=== PATIENT | female | born 1960 | race Caucasian/White ===

== ENCOUNTER 2020-12-25 02:25 | Inpatient (IN) ==
[2020-12-25] MEDS ORDERED: Ondansetron 4 MG/2 ML VIAL IVP PRN (04:53)
[2020-12-25] MEDS ORDERED: Acetaminophen 325 MG TABLET PO PRN (04:53)
[2020-12-25] MEDS ORDERED: Naloxone 0.4 MG/ML INJ IVP PRN (04:53)
[2020-12-25] MEDS ORDERED: *HR* OxyCODONE Immed Rel 5 MG TABLET PO PRN (04:53)
[2020-12-25] MEDS ORDERED: *HR* Promethazine 25 MG/ML VIAL IM PRN (04:53)
[2020-12-25] MEDS ORDERED: Melatonin 3 MG TABLET PO PRN (04:53)
[2020-12-25 05:52] LABS: ABG Base Excess 0 mEq/L (-2 to 3); ABG HCO3 23 mEq/L (21-27); ABG Oxygen Saturation 93 % (95-98); ABG PCO2 32 mmHg (35-45); ABG PH 7.46 pH Units (7.32-7.45); ABG PO2 61 mmHg (85-104); ABG TCO2 24 mEq/L (20-26)
[2020-12-25] MEDS ORDERED: Remdesivir 200 MG in 0.9 % Sodium Chloride 100 ML IVPB ONE (06:00)
[2020-12-25] MEDS: *HR* Enoxaparin 40 MG/0.4 ML SYRINGE SQ SCH (08:48)
[2020-12-25] MEDS ORDERED: Dexamethasone Sodium Phos/PF 10 MG/ML VIAL IVP SCH (09:00)
[2020-12-25] MEDS ORDERED: Isovue-370 500 ML BOTTLE IVP ONE (11:52)
[2020-12-25] MEDS ORDERED: TOCILIZUMAB 810 MG in 0.9 % Sodium Chloride 100 ML IVPB ONE (17:30)
[2020-12-25] MEDS: Ipratropium 1 PUFF INHALER IH SCH (20:33)
[2020-12-26] MEDS: Ipratropium 1 PUFF INHALER IH SCH ×6 (03:48→20:07)
[2020-12-26 04:35] LABS: Hematocrit 43.1 % (35.3-44.9); Hemoglobin 13.7 g/dL (11.5-15.4); Immature Granulocytes % 0.5 % (0-4); Lymphocytes # 0.6 K/mcL (0.6-4.6); Lymphocytes % 13.3 %; Mean Corpuscular HGB Conc 31.8 g/dL (31.6-35.5); Mean Corpuscular Hemoglobin 26.7 pg (28.0-33.3); Mean Corpuscular Volume 83.9 fL (83.0-100.0); Mean Platelet Volume 9.6 fL (9.4-12.4); Monocytes # 0.7 K/mcL (0.0-1.3); Monocytes % 16.9 %; Platelet Count 226 K/mcL (140-400); Red Blood Count 5.14 M/mcL (3.82-4.97); Red Cell Distribution Width 14.5 % (11.5-14.5); Segmented Neutrophils % 69.3 %; White Blood Count 4.4 K/mcL (4.3-11.1)
[2020-12-26 04:42] LABS: INR 1.2
[2020-12-26 04:46] LABS: Neutrophils # 3.1 K/mcL (1.6-8.9)
[2020-12-26 04:55] LABS: Albumin 3.6 g/dL (3.5-5.7); Albumin/Globulin Ratio 1.1 (1.1-2.2); Bilirubin,Direct 0.1 mg/dL (0.0-0.2); Bilirubin,Indirect 0.3 mg/dL (0.0-1.0); Bilirubin,Total 0.4 mg/dL (0.3-1.0); Globulin 3.4 g/dL (2.4-3.5); Magnesium 2.4 mg/dL (1.6-2.6)
[2020-12-26 05:19] LABS: Alanine Aminotransferase 21 Units/L (7-52); Albumin 3.6 g/dL (3.5-5.7); Albumin/Globulin Ratio 1.1 (1.1-2.2); Alkaline Phosphatase 47 Units/L (34-104); Aspartate Amino Transferase 40 Units/L (13-39); BUN/Creatinine Ratio 33 (6-26); Bilirubin,Total 0.4 mg/dL (0.3-1.0); Blood Urea Nitrogen 22 mg/dL (8-23); Carbon Dioxide 26 mEq/L (23-29); Chloride 105 mEq/L (98-107); Globulin 3.4 g/dL (2.4-3.5); Glucose 131 mg/dL (70-105); Osmolality,Calculated 297 (280-300); Potassium 4.5 mEq/L (3.5-5.1); Sodium 141 mEq/L (136-145); eGFR For African Americans > 60 (> 60); eGFR For Non-African Americans > 60 (> 60)
[2020-12-26 05:34] LABS: Platelet Estimate Normal (Normal)
[2020-12-26] MEDS: *HR* Enoxaparin 40 MG/0.4 ML SYRINGE SQ SCH (05:43)
[2020-12-26] MEDS ORDERED: Remdesivir 100 MG in 0.9 % Sodium Chloride 100 ML IVPB SCH (06:00)
[2020-12-26] MEDS: Dexamethasone Sodium Phos/PF 10 MG/ML VIAL IVP SCH (07:57)
[2020-12-26] MEDS ORDERED: Dexamethasone Sodium Phos/PF 10 MG/ML VIAL IVP SCH (09:00)
[2020-12-26] MEDS ORDERED: *HR* LORazepam 2 MG/ML VIAL IVP ONE (09:23)
[2020-12-26 10:06] LABS: ABG Base Excess 1 mEq/L (-2 to 3); ABG HCO3 24 mEq/L (21-27); ABG Oxygen Saturation 93 % (95-98); ABG PCO2 34 mmHg (35-45); ABG PH 7.47 pH Units (7.32-7.45); ABG PO2 62 mmHg (85-104); ABG TCO2 26 mEq/L (20-26); Blood Gas VT 500 cc
[2020-12-26] MEDS: Cholecalciferol (D-3) 1,000 UNIT (25MCG) TABLET PO SCH (10:57)
[2020-12-26] MEDS ORDERED: Dexmedetomidine HCl 400 MCG/100 ML MLS IVC ONE (11:00)
[2020-12-26] MEDS ORDERED: Naloxone 0.4 MG/ML INJ IVP PRN (11:06)
[2020-12-26] MEDS: Dexmedetomidine HCl 400 MCG/100 ML MLS IVC SCH ×2 (11:29→20:28)
[2020-12-26] MEDS: Furosemide 40 MG/4 ML VIAL IVP SCH ×2 (11:34→20:14)
[2020-12-26] MEDS ORDERED: Lidocaine -MPF 1% 5 ML AMPUL INFILT ONE (13:33)
[2020-12-26] MEDS ORDERED: Dexamethasone Sodium Phos/PF 10 MG/ML VIAL IVP ONE (15:01)
[2020-12-26] MEDS: Pantoprazole 40 MG VIAL IVP SCH (20:16)
[2020-12-27] MEDS: Ipratropium 1 PUFF INHALER IH SCH ×7 (00:30→23:15)
[2020-12-27 03:33] LABS: Hematocrit 44.2 % (35.3-44.9); Mean Corpuscular HGB Conc 31.7 g/dL (31.6-35.5); Mean Corpuscular Hemoglobin 26.8 pg (28.0-33.3); Mean Corpuscular Volume 84.7 fL (83.0-100.0); Mean Platelet Volume 9.9 fL (9.4-12.4); Platelet Count 222 K/mcL (140-400); Red Blood Count 5.22 M/mcL (3.82-4.97); Red Cell Distribution Width 14.5 % (11.5-14.5); White Blood Count 6.1 K/mcL (4.3-11.1)
[2020-12-27 03:53] LABS: Alanine Aminotransferase 22 Units/L (7-52); Albumin 3.7 g/dL (3.5-5.7); Alkaline Phosphatase 50 Units/L (34-104); Aspartate Amino Transferase 31 Units/L (13-39); BUN/Creatinine Ratio 57 (6-26); Bilirubin,Total 0.5 mg/dL (0.3-1.0); Blood Urea Nitrogen 47 mg/dL (8-23); C-Reactive Protein 54 mg/L (Less than 10); Calcium 9.1 mg/dL (8.6-10.3); Carbon Dioxide 25 mEq/L (23-29); Chloride 107 mEq/L (98-107); Globulin 3.7 g/dL (2.4-3.5); Glucose 179 mg/dL (70-105); Magnesium 2.5 mg/dL (1.6-2.6); Osmolality,Calculated 313 (280-300); Potassium 4.4 mEq/L (3.5-5.1); Sodium 143 mEq/L (136-145); Total Protein 7.4 g/dL (6.4-8.9); eGFR For African Americans > 60 (> 60); eGFR For Non-African Americans > 60 (> 60)
[2020-12-27] MEDS: Dexmedetomidine HCl 400 MCG/100 ML MLS IVC SCH ×2 (04:55→13:15)
[2020-12-27] MEDS: *HR* Enoxaparin 40 MG/0.4 ML SYRINGE SQ SCH (05:04)
[2020-12-27] MEDS: Dexamethasone Sodium Phos/PF 10 MG/ML VIAL IVP SCH (08:37)
[2020-12-27] MEDS: Pantoprazole 40 MG VIAL IVP SCH (08:37)
[2020-12-27] MEDS: Furosemide 40 MG/4 ML VIAL IVP SCH ×2 (08:37→19:53)
[2020-12-27] MEDS: Cholecalciferol (D-3) 1,000 UNIT (25MCG) TABLET PO SCH (08:38)
[2020-12-28] MEDS: Dexmedetomidine HCl 400 MCG/100 ML MLS IVC SCH (03:06)
[2020-12-28] MEDS: Ipratropium 1 PUFF INHALER IH SCH ×6 (03:35→23:35)
[2020-12-28 04:27] LABS: Hematocrit 46.1 % (35.3-44.9); Hemoglobin 14.1 g/dL (11.5-15.4); Mean Corpuscular HGB Conc 30.6 g/dL (31.6-35.5); Mean Corpuscular Hemoglobin 26.5 pg (28.0-33.3); Mean Corpuscular Volume 86.5 fL (83.0-100.0); Mean Platelet Volume 10.5 fL (9.4-12.4); Platelet Count 206 K/mcL (140-400); Red Blood Count 5.33 M/mcL (3.82-4.97); Red Cell Distribution Width 14.3 % (11.5-14.5); White Blood Count 8.2 K/mcL (4.3-11.1)
[2020-12-28 04:51] LABS: Alanine Aminotransferase 53 Units/L (7-52); Albumin 3.7 g/dL (3.5-5.7); Albumin/Globulin Ratio 1.1 (1.1-2.2); Alkaline Phosphatase 55 Units/L (34-104); Aspartate Amino Transferase 47 Units/L (13-39); BUN/Creatinine Ratio 72 (6-26); Bilirubin,Total 0.5 mg/dL (0.3-1.0); Blood Urea Nitrogen 55 mg/dL (8-23); Calcium 9.3 mg/dL (8.6-10.3); Carbon Dioxide 25 mEq/L (23-29); Chloride 109 mEq/L (98-107); Globulin 3.5 g/dL (2.4-3.5); Glucose 186 mg/dL (70-105); Magnesium 2.7 mg/dL (1.6-2.6); Osmolality,Calculated 324 (280-300); Potassium 3.9 mEq/L (3.5-5.1); Sodium 147 mEq/L (136-145); Total Protein 7.2 g/dL (6.4-8.9); eGFR For African Americans > 60 (> 60); eGFR For Non-African Americans > 60 (> 60)
[2020-12-28] MEDS: *HR* Enoxaparin 40 MG/0.4 ML SYRINGE SQ SCH ×2 (05:11→17:57)
[2020-12-28] MEDS ORDERED: Dexamethasone Sodium Phos/PF 10 MG/ML VIAL IVP SCH (09:00)
[2020-12-28] MEDS: Furosemide 40 MG/4 ML VIAL IVP SCH ×2 (09:37→17:56)
[2020-12-28] MEDS: Pantoprazole 40 MG VIAL IVP SCH (09:38)
[2020-12-28] MEDS: Cholecalciferol (D-3) 1,000 UNIT (25MCG) TABLET PO SCH (09:39)
[2020-12-28] MEDS ORDERED: *HR* LORazepam 2 MG/ML VIAL IVP PRN ×2 (13:24→13:53)
[2020-12-28] MEDS ORDERED: *HR* Promethazine 25 MG/ML VIAL IM PRN (13:53)
[2020-12-28] MEDS ORDERED: Ondansetron 4 MG/2 ML VIAL IVP PRN (13:53)
[2020-12-28] MEDS ORDERED: Naloxone 0.4 MG/ML INJ IVP PRN (13:53)
[2020-12-28] MEDS ORDERED: Melatonin 3 MG TABLET PO PRN (13:53)
[2020-12-28] MEDS ORDERED: *HR* OxyCODONE Immed Rel 5 MG TABLET PO PRN (13:53)
[2020-12-28] MEDS ORDERED: Saline Nasal Spray 44 ML BOTTLE NS PRN (14:31)
[2020-12-28] MEDS ORDERED: *HR* Enoxaparin 40 MG/0.4 ML SYRINGE SQ SCH (18:00)
[2020-12-29 01:38] LABS: Hematocrit 46.3 % (35.3-44.9); Hemoglobin 14.7 g/dL (11.5-15.4); Mean Corpuscular HGB Conc 31.7 g/dL (31.6-35.5); Mean Corpuscular Hemoglobin 26.9 pg (28.0-33.3); Mean Corpuscular Volume 84.6 fL (83.0-100.0); Platelet Count 203 K/mcL (140-400); Red Blood Count 5.47 M/mcL (3.82-4.97); Red Cell Distribution Width 14.1 % (11.5-14.5); White Blood Count 11.7 K/mcL (4.3-11.1)
[2020-12-29 02:00] LABS: Alanine Aminotransferase 49 Units/L (7-52); Albumin 3.8 g/dL (3.5-5.7); Alkaline Phosphatase 60 Units/L (34-104); Aspartate Amino Transferase 29 Units/L (13-39); BUN/Creatinine Ratio 78 (6-26); Bilirubin,Total 0.6 mg/dL (0.3-1.0); Blood Urea Nitrogen 56 mg/dL (8-23); Calcium 9.1 mg/dL (8.6-10.3); Carbon Dioxide 24 mEq/L (23-29); Chloride 108 mEq/L (98-107); Glucose 185 mg/dL (70-105); Magnesium 2.7 mg/dL (1.6-2.6); Osmolality,Calculated 324 (280-300); Potassium 3.4 mEq/L (3.5-5.1); Sodium 147 mEq/L (136-145); eGFR For African Americans > 60 (> 60); eGFR For Non-African Americans > 60 (> 60)
[2020-12-29 02:03] LABS: Albumin/Globulin Ratio 1.1 (1.1-2.2); Globulin 3.4 g/dL (2.4-3.5); Total Protein 7.2 g/dL (6.4-8.9)
[2020-12-29] MEDS: Ipratropium 1 PUFF INHALER IH SCH ×6 (04:31→22:57)
[2020-12-29] MEDS: *HR* Enoxaparin 40 MG/0.4 ML SYRINGE SQ SCH ×2 (05:04→18:39)
[2020-12-29] MEDS: Pantoprazole 40 MG VIAL IVP SCH (07:48)
[2020-12-29] MEDS: Dexamethasone Sodium Phos/PF 10 MG/ML VIAL IVP SCH (07:49)
[2020-12-29] MEDS: Furosemide 40 MG/4 ML VIAL IVP SCH (07:49)
[2020-12-29] MEDS: Cholecalciferol (D-3) 1,000 UNIT (25MCG) TABLET PO SCH (07:49)
[2020-12-29] MEDS ORDERED: Potassium Phosphate 44 MEQ in 0.9 % Sodium Chloride 250 ML IVPB ONE (07:51)
[2020-12-29] MEDS: Doxycycline 100 MG in 0.9 % Sodium Chloride Mini Bag 100 ML IVPB SCH (12:59)
[2020-12-29] MEDS: Loratadine 10 MG TABLET PO SCH (13:03)
[2020-12-30] MEDS: Doxycycline 100 MG in 0.9 % Sodium Chloride Mini Bag 100 ML IVPB SCH ×2 (00:51→12:18)
[2020-12-30 02:18] LABS: Basophils % 0.2 %; Hematocrit 47.1 % (35.3-44.9); Hemoglobin 15.2 g/dL (11.5-15.4); Immature Granulocytes % 1.4 % (0-4); Lymphocytes # 0.8 K/mcL (0.6-4.6); Lymphocytes % 4.7 %; Mean Corpuscular HGB Conc 32.3 g/dL (31.6-35.5); Mean Corpuscular Hemoglobin 27.3 pg (28.0-33.3); Mean Corpuscular Volume 84.7 fL (83.0-100.0); Mean Platelet Volume 10.5 fL (9.4-12.4); Monocytes # 2.2 K/mcL (0.0-1.3); Monocytes % 12.7 %; Platelet Count 193 K/mcL (140-400); Red Blood Count 5.56 M/mcL (3.82-4.97); Red Cell Distribution Width 14.1 % (11.5-14.5); White Blood Count 17.3 K/mcL (4.3-11.1)
[2020-12-30 02:38] LABS: Alanine Aminotransferase 39 Units/L (7-52); Albumin 3.8 g/dL (3.5-5.7); Albumin/Globulin Ratio 1.1 (1.1-2.2); Alkaline Phosphatase 60 Units/L (34-104); Aspartate Amino Transferase 23 Units/L (13-39); BUN/Creatinine Ratio 65 (6-26); Bilirubin,Direct 0.2 mg/dL (0.0-0.2); Bilirubin,Indirect 0.5 mg/dL (0.0-1.0); Bilirubin,Total 0.7 mg/dL (0.3-1.0); Blood Urea Nitrogen 50 mg/dL (8-23); Calcium 9.1 mg/dL (8.6-10.3); Carbon Dioxide 24 mEq/L (23-29); Chloride 113 mEq/L (98-107); Globulin 3.5 g/dL (2.4-3.5); Glucose 178 mg/dL (70-105); Magnesium 2.8 mg/dL (1.6-2.6); Osmolality,Calculated 330 (280-300); Potassium 3.8 mEq/L (3.5-5.1); Sodium 151 mEq/L (136-145); Total Protein 7.3 g/dL (6.4-8.9); eGFR For African Americans > 60 (> 60); eGFR For Non-African Americans > 60 (> 60)
[2020-12-30] MEDS: Ipratropium 1 PUFF INHALER IH SCH ×6 (03:58→23:29)
[2020-12-30] MEDS: *HR* Enoxaparin 40 MG/0.4 ML SYRINGE SQ SCH ×2 (05:28→18:16)
[2020-12-30] MEDS: D5% in 0.2% NACL 500 ML IVC SCH ×2 (09:23→18:40)
[2020-12-30] MEDS: Pantoprazole 40 MG VIAL IVP SCH (09:24)
[2020-12-30] MEDS: Dexamethasone Sodium Phos/PF 10 MG/ML VIAL IVP SCH (09:24)
[2020-12-30] MEDS: Loratadine 10 MG TABLET PO SCH (09:39)
[2020-12-30] MEDS: Cholecalciferol (D-3) 1,000 UNIT (25MCG) TABLET PO SCH (09:39)
[2020-12-30] MEDS: Acetaminophen 325 MG TABLET PO PRN (09:54)
[2020-12-30 10:45] LABS: BUN/Creatinine Ratio 58 (6-26); Blood Urea Nitrogen 43 mg/dL (8-23); Carbon Dioxide 24 mEq/L (23-29); Chloride 107 mEq/L (98-107); Glucose 478 mg/dL (70-105); Potassium 3.4 mEq/L (3.5-5.1); Sodium 143 mEq/L (136-145); eGFR For African Americans > 60 (> 60); eGFR For Non-African Americans > 60 (> 60)
[2020-12-30 10:46] LABS: Calcium 8.4 mg/dL (8.6-10.3); Osmolality,Calculated 328 (280-300)
[2020-12-30 17:19] LABS: BUN/Creatinine Ratio 52 (6-26); Blood Urea Nitrogen 43 mg/dL (8-23); Calcium 8.6 mg/dL (8.6-10.3); Carbon Dioxide 25 mEq/L (23-29); Chloride 109 mEq/L (98-107); Glucose 423 mg/dL (70-105); Osmolality,Calculated 331 (280-300); Potassium 3.7 mEq/L (3.5-5.1); Sodium 146 mEq/L (136-145); eGFR For African Americans > 60 (> 60); eGFR For Non-African Americans > 60 (> 60)
[2020-12-30 21:33] LABS: BUN/Creatinine Ratio 50 (6-26); Blood Urea Nitrogen 40 mg/dL (8-23); Calcium 8.4 mg/dL (8.6-10.3); Carbon Dioxide 22 mEq/L (23-29); Chloride 108 mEq/L (98-107); Glucose 526 mg/dL (70-105); Osmolality,Calculated 330 (280-300); Potassium 3.8 mEq/L (3.5-5.1); Sodium 143 mEq/L (136-145); eGFR For African Americans > 60 (> 60); eGFR For Non-African Americans > 60 (> 60)
[2020-12-31] MEDS: Doxycycline 100 MG in 0.9 % Sodium Chloride Mini Bag 100 ML IVPB SCH ×3 (01:10→23:44)
[2020-12-31 02:22] LABS: BUN/Creatinine Ratio 53 (6-26); Blood Urea Nitrogen 42 mg/dL (8-23); Calcium 9.3 mg/dL (8.6-10.3); Carbon Dioxide 25 mEq/L (23-29); Chloride 115 mEq/L (98-107); Glucose 168 mg/dL (70-105); Osmolality,Calculated 330 (280-300); Potassium 4.3 mEq/L (3.5-5.1); Sodium 153 mEq/L (136-145); eGFR For African Americans > 60 (> 60); eGFR For Non-African Americans > 60 (> 60)
[2020-12-31] MEDS: D5% in Water 500 ML IVC SCH ×3 (03:11→20:08)
[2020-12-31] MEDS: Ipratropium 1 PUFF INHALER IH SCH ×6 (04:19→23:45)
[2020-12-31] MEDS: *HR* Enoxaparin 40 MG/0.4 ML SYRINGE SQ SCH (06:05)
[2020-12-31 06:47] LABS: Basophils # 0.1 K/mcL (0.0-0.2); Basophils % 0.2 %; Hematocrit 49.3 % (35.3-44.9); Hemoglobin 15.2 g/dL (11.5-15.4); Immature Granulocytes % 2.3 % (0-4); Lymphocytes # 1.2 K/mcL (0.6-4.6); Lymphocytes % 5.7 %; Mean Corpuscular HGB Conc 30.8 g/dL (31.6-35.5); Mean Corpuscular Hemoglobin 26.8 pg (28.0-33.3); Mean Corpuscular Volume 86.8 fL (83.0-100.0); Mean Platelet Volume 11.6 fL (9.4-12.4); Monocytes % 9.6 %; Neutrophils # 17.4 K/mcL (1.6-8.9); Platelet Count 128 K/mcL (140-400); Red Blood Count 5.68 M/mcL (3.82-4.97); Red Cell Distribution Width 14.5 % (11.5-14.5); Segmented Neutrophils % 82.2 %; White Blood Count 21.2 K/mcL (4.3-11.1)
[2020-12-31 07:07] LABS: BUN/Creatinine Ratio 57 (6-26); Blood Urea Nitrogen 43 mg/dL (8-23); Calcium 9.2 mg/dL (8.6-10.3); Carbon Dioxide 23 mEq/L (23-29); Chloride 115 mEq/L (98-107); Glucose 178 mg/dL (70-105); Magnesium 2.8 mg/dL (1.6-2.6); Osmolality,Calculated 327 (280-300); Potassium 3.8 mEq/L (3.5-5.1); Sodium 151 mEq/L (136-145); eGFR For African Americans > 60 (> 60); eGFR For Non-African Americans > 60 (> 60)
[2020-12-31] MEDS: Piperacillin/Tazobactam 3.375 GM in 0.9 % Sodium Chloride Mini Bag 100 ML IVPB SCH ×2 (08:37→16:17)
[2020-12-31] MEDS: Loratadine 10 MG TABLET PO SCH (08:37)
[2020-12-31] MEDS: Cholecalciferol (D-3) 1,000 UNIT (25MCG) TABLET PO SCH (08:38)
[2020-12-31] MEDS: Pantoprazole 40 MG VIAL IVP SCH (08:38)
[2020-12-31 09:45] LABS: Bacteria,Urine Few per hpf (None-Few); Bilirubin,Urine Negative (Negative); Blood,Urine Negative (Negative); Clarity,Urine Clear (Clear); Color,Urine Yellow (Yellow); Glucose,Urine (UA) Normal (Normal); Ketones,Urine Negative (Negative); Leukocyte Esterase,Urine Negative (Negative); Mucus,Urine Few per lpf (None-Few); Nitrite,Urine Negative (Negative); Protein,Urine 30 mg/dL (Neg-Trace); RBC,Urine 15-30 per hpf (0-3); Specific Gravity,Urine > 1.030 (1.010-1.025); Urobilinogen,Urine Normal (Normal)
[2020-12-31] MEDS: Acetaminophen 325 MG TABLET PO PRN ×2 (12:44→16:19)
[2020-12-31 15:35] LABS: BUN/Creatinine Ratio 50 (6-26); Blood Urea Nitrogen 38 mg/dL (8-23); Carbon Dioxide 27 mEq/L (23-29); Chloride 114 mEq/L (98-107); Glucose 149 mg/dL (70-105); Osmolality,Calculated 320 (280-300); Potassium 3.9 mEq/L (3.5-5.1); Sodium 149 mEq/L (136-145); eGFR For African Americans > 60 (> 60); eGFR For Non-African Americans > 60 (> 60)
[2020-12-31] MEDS: Dexamethasone Sodium Phos/PF 10 MG/ML VIAL IVP SCH (16:49)
[2020-12-31] MEDS: *HR* Enoxaparin 100 MG/ML SYRINGE SQ SCH (16:49)
[2020-12-31] MEDS: Lactobacillus 1 EACH CAP.SPRINK PO SCH (20:08)
[2021-01-01] MEDS: Piperacillin/Tazobactam 3.375 GM in 0.9 % Sodium Chloride Mini Bag 100 ML IVPB SCH (00:17)
[2021-01-01] MEDS: Doxycycline 100 MG in 0.9 % Sodium Chloride Mini Bag 100 ML IVPB SCH ×2 (00:18→15:24)
[2021-01-01] MEDS: Ipratropium 1 PUFF INHALER IH SCH ×5 (04:08→20:03)
[2021-01-01] MEDS: *HR* Enoxaparin 100 MG/ML SYRINGE SQ SCH ×2 (05:00→18:20)
[2021-01-01 06:24] LABS: Basophils % 0.2 %; Eosinophils % 0.1 %; Hemoglobin 15.2 g/dL (11.5-15.4); Immature Granulocytes % 2.2 % (0-4); Lymphocytes # 1.3 K/mcL (0.6-4.6); Lymphocytes % 6.6 %; Mean Corpuscular Hemoglobin 26.8 pg (28.0-33.3); Mean Corpuscular Volume 86.4 fL (83.0-100.0); Mean Platelet Volume 11.6 fL (9.4-12.4); Monocytes # 1.1 K/mcL (0.0-1.3); Monocytes % 5.8 %; Neutrophils # 16.6 K/mcL (1.6-8.9); Platelet Count 146 K/mcL (140-400); Red Blood Count 5.67 M/mcL (3.82-4.97); Red Cell Distribution Width 14.2 % (11.5-14.5); Segmented Neutrophils % 85.1 %; White Blood Count 19.5 K/mcL (4.3-11.1)
[2021-01-01 06:49] LABS: BUN/Creatinine Ratio 47 (6-26); Blood Urea Nitrogen 38 mg/dL (8-23); Calcium 9.1 mg/dL (8.6-10.3); Carbon Dioxide 25 mEq/L (23-29); Chloride 111 mEq/L (98-107); Glucose 144 mg/dL (70-105); Magnesium 2.7 mg/dL (1.6-2.6); Osmolality,Calculated 320 (280-300); Potassium 4.3 mEq/L (3.5-5.1); Sodium 149 mEq/L (136-145); eGFR For African Americans > 60 (> 60); eGFR For Non-African Americans > 60 (> 60)
[2021-01-01] MEDS: Cholecalciferol (D-3) 1,000 UNIT (25MCG) TABLET PO SCH (09:36)
[2021-01-01] MEDS: Lactobacillus 1 EACH CAP.SPRINK PO SCH ×2 (09:36→20:08)
[2021-01-01] MEDS: Loratadine 10 MG TABLET PO SCH (09:36)
[2021-01-01] MEDS: Pantoprazole 40 MG VIAL IVP SCH (09:37)
[2021-01-01] MEDS: cefTRIAXone 1,000 MG in 0.9 % Sodium Chloride Mini Bag 100 ML IVPB SCH (09:37)
[2021-01-01] MEDS: Dexamethasone Sodium Phos/PF 10 MG/ML VIAL IVP SCH (09:37)
[2021-01-01] MEDS: Acetaminophen 325 MG TABLET PO PRN (18:26)
[2021-01-01] MEDS ORDERED: Doxycycline 100 MG CAPSULE PO SCH (21:00)
[2021-01-02] MEDS: Ipratropium 1 PUFF INHALER IH SCH ×7 (00:44→23:47)
[2021-01-02] MEDS: *HR* Enoxaparin 100 MG/ML SYRINGE SQ SCH ×2 (05:03→17:23)
[2021-01-02 07:58] LABS: Basophils % 0.2 %; Eosinophils % 0.1 %; Hematocrit 49.5 % (35.3-44.9); Hemoglobin 15.6 g/dL (11.5-15.4); Immature Granulocytes % 2.8 % (0-4); Lymphocytes # 1.7 K/mcL (0.6-4.6); Lymphocytes % 7.8 %; Mean Corpuscular HGB Conc 31.5 g/dL (31.6-35.5); Mean Corpuscular Hemoglobin 27.1 pg (28.0-33.3); Mean Corpuscular Volume 86.1 fL (83.0-100.0); Mean Platelet Volume 12.7 fL (9.4-12.4); Monocytes # 1.7 K/mcL (0.0-1.3); Monocytes % 7.6 %; Neutrophils # 17.9 K/mcL (1.6-8.9); Platelet Count 123 K/mcL (140-400); Red Blood Count 5.75 M/mcL (3.82-4.97); Red Cell Distribution Width 14.1 % (11.5-14.5); Segmented Neutrophils % 81.5 %
[2021-01-02 08:12] LABS: BUN/Creatinine Ratio 55 (6-26); Blood Urea Nitrogen 37 mg/dL (8-23); Calcium 9.2 mg/dL (8.6-10.3); Carbon Dioxide 23 mEq/L (23-29); Chloride 115 mEq/L (98-107); Glucose 136 mg/dL (70-105); Magnesium 2.7 mg/dL (1.6-2.6); Osmolality,Calculated 321 (280-300); Potassium 4.5 mEq/L (3.5-5.1); Sodium 150 mEq/L (136-145); eGFR For African Americans > 60 (> 60); eGFR For Non-African Americans > 60 (> 60)
[2021-01-02] MEDS: Loratadine 10 MG TABLET PO SCH (08:49)
[2021-01-02] MEDS: Cholecalciferol (D-3) 1,000 UNIT (25MCG) TABLET PO SCH (08:49)
[2021-01-02] MEDS: Lactobacillus 1 EACH CAP.SPRINK PO SCH ×2 (08:49→20:06)
[2021-01-02] MEDS: cefTRIAXone 1,000 MG in 0.9 % Sodium Chloride Mini Bag 100 ML IVPB SCH (08:50)
[2021-01-02] MEDS: Dexamethasone Sodium Phos/PF 10 MG/ML VIAL IVP SCH (08:50)
[2021-01-02] MEDS ORDERED: Doxycycline 100 MG CAPSULE PO SCH (09:00)
[2021-01-02] MEDS: Pantoprazole 40 MG VIAL IVP SCH (09:50)
[2021-01-02] MEDS: Acetaminophen 325 MG TABLET PO PRN (20:06)
[2021-01-03] MEDS: Ipratropium 1 PUFF INHALER IH SCH ×5 (03:47→20:22)
[2021-01-03] MEDS: *HR* Enoxaparin 100 MG/ML SYRINGE SQ SCH ×2 (04:36→17:10)
[2021-01-03] MEDS: Cholecalciferol (D-3) 1,000 UNIT (25MCG) TABLET PO SCH (08:41)
[2021-01-03] MEDS: Lactobacillus 1 EACH CAP.SPRINK PO SCH ×2 (08:41→21:36)
[2021-01-03] MEDS: Loratadine 10 MG TABLET PO SCH (08:41)
[2021-01-03] MEDS: Pantoprazole 40 MG VIAL IVP SCH (08:42)
[2021-01-03] MEDS: cefTRIAXone 1,000 MG in 0.9 % Sodium Chloride Mini Bag 100 ML IVPB SCH (08:42)
[2021-01-03] MEDS: Dexamethasone Sodium Phos/PF 10 MG/ML VIAL IVP SCH (08:43)
[2021-01-03 10:33] LABS: BUN/Creatinine Ratio 55 (6-26); Blood Urea Nitrogen 36 mg/dL (8-23); Calcium 9.7 mg/dL (8.6-10.3); Carbon Dioxide 21 mEq/L (23-29); Chloride 113 mEq/L (98-107); Glucose 134 mg/dL (70-105); Magnesium 2.8 mg/dL (1.6-2.6); Osmolality,Calculated 314 (280-300); Phosphorous 4.5 mg/dL (2.7-4.5); Potassium 4.6 mEq/L (3.5-5.1); Sodium 147 mEq/L (136-145); eGFR For African Americans > 60 (> 60); eGFR For Non-African Americans > 60 (> 60)
[2021-01-03 10:37] LABS: Platelet Count 130 K/mcL (140-400)
[2021-01-03 10:38] LABS: Hematocrit 49.5 % (35.3-44.9); Hemoglobin 15.7 g/dL (11.5-15.4); Mean Corpuscular HGB Conc 31.7 g/dL (31.6-35.5); Mean Corpuscular Hemoglobin 27.1 pg (28.0-33.3); Mean Corpuscular Volume 85.3 fL (83.0-100.0); Mean Platelet Volume 12.4 fL (9.4-12.4); Red Cell Distribution Width 13.9 % (11.5-14.5); White Blood Count 26.3 K/mcL (4.3-11.1)
[2021-01-03 12:13] LABS: Lymphocytes # 1.3 K/mcL (0.6-4.6); Monocytes # 1.1 K/mcL (0.0-1.3); Neutrophils # 23.9 K/mcL (1.6-8.9); Platelet Estimate Slight Decrease (Normal)
[2021-01-04] MEDS: Ipratropium 1 PUFF INHALER IH SCH ×7 (00:21→23:16)
[2021-01-04] MEDS: *HR* Enoxaparin 100 MG/ML SYRINGE SQ SCH ×2 (06:04→16:35)
[2021-01-04 08:09] LABS: Hemoglobin 16.6 g/dL (11.5-15.4)
[2021-01-04 08:10] LABS: Hematocrit 52.2 % (35.3-44.9); Mean Corpuscular HGB Conc 31.8 g/dL (31.6-35.5); Mean Corpuscular Hemoglobin 26.9 pg (28.0-33.3); Mean Corpuscular Volume 84.7 fL (83.0-100.0); Platelet Count 107 K/mcL (140-400); Red Blood Count 6.16 M/mcL (3.82-4.97); Red Cell Distribution Width 14.2 % (11.5-14.5)
[2021-01-04] MEDS: Pantoprazole 40 MG VIAL IVP SCH (08:15)
[2021-01-04] MEDS: cefTRIAXone 1,000 MG in 0.9 % Sodium Chloride Mini Bag 100 ML IVPB SCH (08:15)
[2021-01-04] MEDS: Dexamethasone Sodium Phos/PF 10 MG/ML VIAL IVP SCH (08:16)
[2021-01-04] MEDS: Loratadine 10 MG TABLET PO SCH (08:16)
[2021-01-04] MEDS: Cholecalciferol (D-3) 1,000 UNIT (25MCG) TABLET PO SCH (08:16)
[2021-01-04] MEDS: Lactobacillus 1 EACH CAP.SPRINK PO SCH ×2 (08:16→22:27)
[2021-01-04 08:17] LABS: BUN/Creatinine Ratio 54 (6-26); Blood Urea Nitrogen 39 mg/dL (8-23); Calcium 9.4 mg/dL (8.6-10.3); Carbon Dioxide 21 mEq/L (23-29); Chloride 115 mEq/L (98-107); Glucose 155 mg/dL (70-105); Magnesium 2.8 mg/dL (1.6-2.6); Osmolality,Calculated 321 (280-300); Potassium 4.5 mEq/L (3.5-5.1); Sodium 149 mEq/L (136-145); eGFR For African Americans > 60 (> 60); eGFR For Non-African Americans > 60 (> 60)
[2021-01-04 08:40] LABS: White Blood Count 30.5 K/mcL (4.3-11.1)
[2021-01-04 09:53] LABS: Monocytes # 1.2 K/mcL (0.0-1.3); Neutrophils # 28.7 K/mcL (1.6-8.9); Platelet Estimate Decreased (Normal)
[2021-01-04] MEDS ORDERED: *HR* Metoprolol 5 MG/5 ML VIAL IVP ONE (13:53)
[2021-01-04] MEDS ORDERED: Isovue-370 500 ML BOTTLE IVP ONE (14:02)
[2021-01-05] MEDS: Ipratropium 1 PUFF INHALER IH SCH ×5 (03:20→20:05)
[2021-01-05] MEDS: *HR* Enoxaparin 100 MG/ML SYRINGE SQ SCH ×2 (06:43→18:46)
[2021-01-05] MEDS: Cholecalciferol (D-3) 1,000 UNIT (25MCG) TABLET PO SCH (09:26)
[2021-01-05] MEDS: Loratadine 10 MG TABLET PO SCH (09:26)
[2021-01-05] MEDS: cefTRIAXone 1,000 MG in 0.9 % Sodium Chloride Mini Bag 100 ML IVPB SCH (09:27)
[2021-01-05] MEDS: Pantoprazole 40 MG VIAL IVP SCH (09:27)
[2021-01-05] MEDS: Lactobacillus 1 EACH CAP.SPRINK PO SCH ×2 (09:27→20:39)
[2021-01-05 14:31] LABS: Hemoglobin 17.7 g/dL (11.5-15.4); Immature Platelets 14.1 % (1.1-6.1); Lymphocytes # 1.6 K/mcL (0.6-4.6); Mean Corpuscular HGB Conc 30.8 g/dL (31.6-35.5); Mean Corpuscular Hemoglobin 26.7 pg (28.0-33.3); Mean Corpuscular Volume 86.4 fL (83.0-100.0); Mean Platelet Volume 12.7 fL (9.4-12.4); Nucleated Red Blood Cells 0.1 /100 WBC (0); Red Blood Count 6.64 M/mcL (3.82-4.97); Red Cell Distribution Width 16.1 % (11.5-14.5)
[2021-01-05 14:35] LABS: Hematocrit 57.4 % (35.3-44.9); Platelet Count 91 K/mcL (140-400); White Blood Count 39.4 K/mcL (4.3-11.1)
[2021-01-05 14:43] LABS: BUN/Creatinine Ratio 46 (6-26); Blood Urea Nitrogen 50 mg/dL (8-23); Calcium 9.9 mg/dL (8.6-10.3); Carbon Dioxide 14 mEq/L (23-29); Chloride 119 mEq/L (98-107); Glucose 271 mg/dL (70-105); Osmolality,Calculated 337 (280-300); Potassium 4.9 mEq/L (3.5-5.1); Sodium 152 mEq/L (136-145); eGFR For African Americans > 60 (> 60); eGFR For Non-African Americans 51 (> 60)
[2021-01-05 15:14] LABS: Monocytes # 0.8 K/mcL (0.0-1.3); Platelet Estimate Slight Decrease (Normal)
[2021-01-05] MEDS: D5% in Water 1,000 ML IVC SCH (18:46)
[2021-01-05] MEDS: Piperacillin/Tazobactam 3.375 GM in 0.9 % Sodium Chloride Mini Bag 100 ML IVPB SCH (23:33)
[2021-01-06] MEDS: Ipratropium 1 PUFF INHALER IH SCH ×7 (00:15→23:20)
[2021-01-06 03:57] LABS: BUN/Creatinine Ratio 51 (6-26); Blood Urea Nitrogen 37 mg/dL (8-23); Calcium 7.2 mg/dL (8.6-10.3); Carbon Dioxide 18 mEq/L (23-29); Chloride 121 mEq/L (98-107); Glucose 184 mg/dL (70-105); Osmolality,Calculated 343 (280-300); Potassium 3.4 mEq/L (3.5-5.1); Sodium 160 mEq/L (136-145); eGFR For African Americans > 60 (> 60); eGFR For Non-African Americans > 60 (> 60)
[2021-01-06 04:32] LABS: Basophils % 0.1 %; Hematocrit 39.4 % (35.3-44.9); Immature Granulocytes % 1.4 % (0-4); Lymphocytes # 1.9 K/mcL (0.6-4.6); Lymphocytes % 7.3 %; Mean Corpuscular Hemoglobin 26.8 pg (28.0-33.3); Mean Corpuscular Volume 86.6 fL (83.0-100.0); Mean Platelet Volume 12.4 fL (9.4-12.4); Monocytes % 7.9 %; Red Blood Count 4.55 M/mcL (3.82-4.97); Red Cell Distribution Width 14.1 % (11.5-14.5); Segmented Neutrophils % 83.3 %; White Blood Count 25.6 K/mcL (4.3-11.1)
[2021-01-06 04:33] LABS: Hemoglobin 12.2 g/dL (11.5-15.4); Neutrophils # 21.3 K/mcL (1.6-8.9)
[2021-01-06 04:34] LABS: Platelet Count 53 K/mcL (140-400)
[2021-01-06] MEDS: *HR* Enoxaparin 100 MG/ML SYRINGE SQ SCH ×2 (05:26→17:53)
[2021-01-06] MEDS ORDERED: D5% in Water 1,000 ML IVC SCH ×3 (06:15→15:41)
[2021-01-06] MEDS: Loratadine 10 MG TABLET PO SCH (09:17)
[2021-01-06] MEDS: Lactobacillus 1 EACH CAP.SPRINK PO SCH ×2 (09:17→19:37)
[2021-01-06] MEDS: Cholecalciferol (D-3) 1,000 UNIT (25MCG) TABLET PO SCH (09:17)
[2021-01-06] MEDS: Pantoprazole 40 MG VIAL IVP SCH (09:26)
[2021-01-06] MEDS: Piperacillin/Tazobactam 3.375 GM in 0.9 % Sodium Chloride Mini Bag 100 ML IVPB SCH ×3 (09:27→23:49)
[2021-01-06 10:55] LABS: Albumin 3.3 g/dL (3.5-5.7); BUN/Creatinine Ratio 48 (6-26); Blood Urea Nitrogen 41 mg/dL (8-23); Calcium 8.9 mg/dL (8.6-10.3); Carbon Dioxide 21 mEq/L (23-29); Chloride 120 mEq/L (98-107); Glucose 179 mg/dL (70-105); Magnesium 2.7 mg/dL (1.6-2.6); Osmolality,Calculated 331 (280-300); Phosphorous 3.7 mg/dL (2.7-4.5); Sodium 153 mEq/L (136-145); eGFR For African Americans > 60 (> 60); eGFR For Non-African Americans > 60 (> 60)
[2021-01-06] MEDS: D5% in Water 1,000 ML IVC SCH (12:51)
[2021-01-07] MEDS: Ipratropium 1 PUFF INHALER IH SCH ×4 (03:30→20:00)
[2021-01-07] MEDS: *HR* Enoxaparin 100 MG/ML SYRINGE SQ SCH ×2 (05:16→17:31)
[2021-01-07 05:54] LABS: Basophils % 0.1 %; Nucleated Red Blood Cells 0.1 /100 WBC (0); Segmented Neutrophils % 83.5 %
[2021-01-07 05:56] LABS: Eosinophils # 0.1 K/mcL (0.0-0.6); Eosinophils % 0.2 %; Hemoglobin 15.2 g/dL (11.5-15.4); Immature Granulocytes % 1.1 % (0-4); Immature Platelets 15.4 % (1.1-6.1); Lymphocytes # 2.1 K/mcL (0.6-4.6); Lymphocytes % 7.6 %; Mean Corpuscular HGB Conc 31.7 g/dL (31.6-35.5); Mean Corpuscular Hemoglobin 27.2 pg (28.0-33.3); Mean Platelet Volume 13.5 fL (9.4-12.4); Monocytes % 7.5 %; Neutrophils # 22.6 K/mcL (1.6-8.9); Red Blood Count 5.58 M/mcL (3.82-4.97); Red Cell Distribution Width 14.6 % (11.5-14.5)
[2021-01-07 05:58] LABS: Platelet Count 64 K/mcL (140-400)
[2021-01-07 06:13] LABS: BUN/Creatinine Ratio 44 (6-26); Blood Urea Nitrogen 42 mg/dL (8-23); Calcium 9.2 mg/dL (8.6-10.3); Carbon Dioxide 23 mEq/L (23-29); Chloride 121 mEq/L (98-107); Glucose 159 mg/dL (70-105); Osmolality,Calculated 330 (280-300); Potassium 4.3 mEq/L (3.5-5.1); Sodium 153 mEq/L (136-145); eGFR For African Americans > 60 (> 60); eGFR For Non-African Americans 59 (> 60)
[2021-01-07] MEDS: Lactobacillus 1 EACH CAP.SPRINK PO SCH ×2 (07:46→20:48)
[2021-01-07] MEDS: Cholecalciferol (D-3) 1,000 UNIT (25MCG) TABLET PO SCH (07:46)
[2021-01-07] MEDS: Loratadine 10 MG TABLET PO SCH (07:46)
[2021-01-07] MEDS: Piperacillin/Tazobactam 3.375 GM in 0.9 % Sodium Chloride Mini Bag 100 ML IVPB SCH ×2 (07:47→15:37)
[2021-01-07] MEDS: Pantoprazole 40 MG VIAL IVP SCH (07:50)
[2021-01-08] MEDS: Piperacillin/Tazobactam 3.375 GM in 0.9 % Sodium Chloride Mini Bag 100 ML IVPB SCH ×2 (00:03→09:09)
[2021-01-08] MEDS: Ipratropium 1 PUFF INHALER IH SCH ×4 (03:49→21:49)
[2021-01-08] MEDS: *HR* Enoxaparin 100 MG/ML SYRINGE SQ SCH ×2 (05:01→17:32)
[2021-01-08 05:51] LABS: Hemoglobin 15.2 g/dL (11.5-15.4); Mean Corpuscular Hemoglobin 27.5 pg (28.0-33.3); Nucleated Red Blood Cells 0.1 /100 WBC (0)
[2021-01-08 05:53] LABS: Basophils % 0.2 %; Eosinophils # 0.1 K/mcL (0.0-0.6); Eosinophils % 0.4 %; Immature Granulocytes % 1.1 % (0-4); Immature Platelets 16.2 % (1.1-6.1); Lymphocytes % 7.6 %; Mean Corpuscular HGB Conc 31.7 g/dL (31.6-35.5); Monocytes # 1.8 K/mcL (0.0-1.3); Red Blood Count 5.52 M/mcL (3.82-4.97); Segmented Neutrophils % 83.7 %; White Blood Count 25.6 K/mcL (4.3-11.1)
[2021-01-08 05:56] LABS: Basophils # 0.1 K/mcL (0.0-0.2); Neutrophils # 21.4 K/mcL (1.6-8.9); Platelet Count 62 K/mcL (140-400)
[2021-01-08 06:14] LABS: BUN/Creatinine Ratio 45 (6-26); Blood Urea Nitrogen 40 mg/dL (8-23); Calcium 9.4 mg/dL (8.6-10.3); Carbon Dioxide 21 mEq/L (23-29); Chloride 126 mEq/L (98-107); Glucose 150 mg/dL (70-105); Magnesium 2.9 mg/dL (1.6-2.6); Osmolality,Calculated 337 (280-300); Potassium 4.4 mEq/L (3.5-5.1); Sodium 157 mEq/L (136-145); eGFR For African Americans > 60 (> 60); eGFR For Non-African Americans > 60 (> 60)
[2021-01-08] MEDS: Lactobacillus 1 EACH CAP.SPRINK PO SCH ×2 (09:10→21:25)
[2021-01-08] MEDS: Cholecalciferol (D-3) 1,000 UNIT (25MCG) TABLET PO SCH (09:10)
[2021-01-08] MEDS: Loratadine 10 MG TABLET PO SCH (09:10)
[2021-01-08] MEDS: Pantoprazole 40 MG VIAL IVP SCH (09:11)
[2021-01-08] MEDS ORDERED: D5% in Water 1,000 ML IVC SCH (15:45)
[2021-01-08] MEDS ORDERED: Piperacillin/Tazobactam 3.375 GM in D5% in Water (Mini-Bag+) 100 ML IVPB SCH (16:00)
[2021-01-08 16:39] LABS: Amorphous Sediment,Urine Few per hpf (None-Few); Bilirubin,Urine Negative (Negative); Blood,Urine Moderate (Negative); Clarity,Urine Turbid (Clear); Color,Urine Yellow (Yellow); Glucose,Urine (UA) Normal (Normal); Ketones,Urine Trace mg/dL (Negative); Leukocyte Esterase,Urine Trace (Negative); Nitrite,Urine Negative (Negative); PH,Urine 5.5 pH Units (5.0-8.0); Protein,Urine 30 mg/dL (Neg-Trace); RBC,Urine 50-100 per hpf (0-3); Renal Epithelial Cells,Urine Few per hpf (None-Few); Specific Gravity,Urine > 1.030 (1.010-1.025); Squamous Epithelial Cell,Urine Few per hpf (None-Few); Transitional Epi Cells,Urine Few per hpf (None-Few); Urobilinogen,Urine Normal (Normal)
[2021-01-09] MEDS: Piperacillin/Tazobactam 3.375 GM in D5% in Water (Mini-Bag+) 100 ML IVPB SCH ×4 (01:08→18:17)
[2021-01-09] MEDS: Ipratropium 1 PUFF INHALER IH SCH ×4 (04:10→21:52)
[2021-01-09] MEDS: *HR* Enoxaparin 100 MG/ML SYRINGE SQ SCH ×2 (06:17→18:18)
[2021-01-09 07:47] LABS: Nucleated Red Blood Cells 0.1 /100 WBC (0)
[2021-01-09 07:49] LABS: Hemoglobin 16.7 g/dL (11.5-15.4); Immature Platelets 16.4 % (1.1-6.1); Mean Corpuscular HGB Conc 32.1 g/dL (31.6-35.5); Mean Corpuscular Hemoglobin 27.4 pg (28.0-33.3); Mean Corpuscular Volume 85.4 fL (83.0-100.0); Red Blood Count 6.09 M/mcL (3.82-4.97); Red Cell Distribution Width 16.5 % (11.5-14.5)
[2021-01-09 08:02] LABS: Calcium 9.7 mg/dL (8.6-10.3); Magnesium 3.1 mg/dL (1.6-2.6); Potassium 5.2 mEq/L (3.5-5.1)
[2021-01-09 08:11] LABS: Platelet Count 60 K/mcL (140-400)
[2021-01-09 08:17] LABS: White Blood Count 39.7 K/mcL (4.3-11.1)
[2021-01-09] MEDS: Lactobacillus 1 EACH CAP.SPRINK PO SCH ×2 (08:33→20:08)
[2021-01-09] MEDS: Pantoprazole 40 MG VIAL IVP SCH (08:33)
[2021-01-09] MEDS: Loratadine 10 MG TABLET PO SCH (08:33)
[2021-01-09] MEDS: Cholecalciferol (D-3) 1,000 UNIT (25MCG) TABLET PO SCH (08:34)
[2021-01-09] MEDS ORDERED: D5% in Water 1,000 ML IVC SCH ×2 (09:15→15:15)
[2021-01-09 13:20] LABS: Lymphocytes # 0.8 K/mcL (0.6-4.6); Monocytes # 2.4 K/mcL (0.0-1.3); Neutrophils # 36.5 K/mcL (1.6-8.9); Platelet Estimate Decreased (Normal)
[2021-01-09 14:59] LABS: BUN/Creatinine Ratio 57 (6-26); Blood Urea Nitrogen 52 mg/dL (8-23); Carbon Dioxide 17 mEq/L (23-29); Chloride 125 mEq/L (98-107); Glucose 326 mg/dL (70-105); Osmolality,Calculated 345 (280-300); Potassium 3.7 mEq/L (3.5-5.1); Sodium 154 mEq/L (136-145); eGFR For African Americans > 60 (> 60); eGFR For Non-African Americans > 60 (> 60)
[2021-01-09 18:59] LABS: BUN/Creatinine Ratio 49 (6-26); Blood Urea Nitrogen 46 mg/dL (8-23); Calcium 7.6 mg/dL (8.6-10.3); Carbon Dioxide 16 mEq/L (23-29); Chloride 115 mEq/L (98-107); Glucose 673 mg/dL (70-105); Osmolality,Calculated 336 (280-300); Potassium 3.4 mEq/L (3.5-5.1); Sodium 141 mEq/L (136-145); eGFR For African Americans > 60 (> 60); eGFR For Non-African Americans > 60 (> 60)
[2021-01-09 20:58] LABS: BUN/Creatinine Ratio 49 (6-26); Blood Urea Nitrogen 50 mg/dL (8-23); Calcium 8.6 mg/dL (8.6-10.3); Carbon Dioxide 18 mEq/L (23-29); Chloride 116 mEq/L (98-107); Glucose 504 mg/dL (70-105); Osmolality,Calculated 344 (280-300); Potassium 4.3 mEq/L (3.5-5.1); Sodium 149 mEq/L (136-145); eGFR For African Americans > 60 (> 60); eGFR For Non-African Americans 54 (> 60)
[2021-01-09] MEDS ORDERED: *HR* Dextrose 50 % in Water (Vial) 50 ML VIAL IVP PRN (21:17)
[2021-01-09] MEDS ORDERED: Insulin LISPRO 300 UNITS/3 ML VIAL SUBQ PRN (21:17)
[2021-01-09] MEDS: D5 IVPB PRN (22:48)
[2021-01-09] MEDS: WATER IVPB PRN (22:48)
[2021-01-09] MEDS: POTASSIUM CHLORIDE IVPB PRN (22:48)
[2021-01-09] MEDS: D5 IVC SCH (22:57)
[2021-01-09] MEDS: WATER IVC SCH (22:57)
[2021-01-09] MEDS: INSULIN HUMAN REGULAR IVC SCH (22:57)
[2021-01-10 00:13] LABS: BUN/Creatinine Ratio 49 (6-26); Blood Urea Nitrogen 50 mg/dL (8-23); Calcium 9.2 mg/dL (8.6-10.3); Carbon Dioxide 19 mEq/L (23-29); Chloride 126 mEq/L (98-107); Glucose 226 mg/dL (70-105); Osmolality,Calculated 340 (280-300); Potassium 4.9 mEq/L (3.5-5.1); Sodium 155 mEq/L (136-145); eGFR For African Americans > 60 (> 60); eGFR For Non-African Americans 54 (> 60)
[2021-01-10] MEDS: WATER IVPB PRN (00:19)
[2021-01-10] MEDS: POTASSIUM CHLORIDE IVPB PRN (00:19)
[2021-01-10] MEDS: D5 IVPB PRN (00:19)
[2021-01-10] MEDS: Piperacillin/Tazobactam 3.375 GM in D5% in Water (Mini-Bag+) 100 ML IVPB SCH ×4 (00:21→23:44)
[2021-01-10] MEDS ORDERED: Insulin DETEMIR 100 UNIT/ML X5UNITS SUBQ ONE (00:50)
[2021-01-10] MEDS: Ipratropium 1 PUFF INHALER IH SCH ×4 (04:08→22:00)
[2021-01-10] MEDS: *HR* Enoxaparin 100 MG/ML SYRINGE SQ SCH (05:11)
[2021-01-10 05:54] LABS: Basophils % 0.1 %; Eosinophils % 0.1 %; Hematocrit 46.7 % (35.3-44.9); Immature Granulocytes % 1.7 % (0-4); Lymphocytes # 1.8 K/mcL (0.6-4.6); Lymphocytes % 4.9 %; Mean Corpuscular HGB Conc 30.8 g/dL (31.6-35.5); Mean Corpuscular Hemoglobin 26.9 pg (28.0-33.3); Mean Corpuscular Volume 87.1 fL (83.0-100.0); Monocytes # 2.2 K/mcL (0.0-1.3); Monocytes % 5.9 %; Neutrophils # 32.7 K/mcL (1.6-8.9); Nucleated Red Blood Cells 0.2 /100 WBC (0); Red Blood Count 5.36 M/mcL (3.82-4.97); Segmented Neutrophils % 87.3 %
[2021-01-10 05:56] LABS: Hemoglobin 14.4 g/dL (11.5-15.4); Platelet Count 65 K/mcL (140-400)
[2021-01-10 06:03] LABS: White Blood Count 37.4 K/mcL (4.3-11.1)
[2021-01-10 06:17] LABS: Alanine Aminotransferase 83 Units/L (7-52); Albumin 3.4 g/dL (3.5-5.7); Albumin/Globulin Ratio 1.4 (1.1-2.2); Alkaline Phosphatase 90 Units/L (34-104); Aspartate Amino Transferase 65 Units/L (13-39); BUN/Creatinine Ratio 45 (6-26); Blood Urea Nitrogen 52 mg/dL (8-23); Calcium 9.4 mg/dL (8.6-10.3); Carbon Dioxide 21 mEq/L (23-29); Chloride 124 mEq/L (98-107); Globulin 2.5 g/dL (2.4-3.5); Glucose 211 mg/dL (70-105); Lactate Dehydrogenase 1035 Units/L (140-271); Osmolality,Calculated 342 (280-300); Potassium 4.7 mEq/L (3.5-5.1); Sodium 156 mEq/L (136-145); Total Protein 5.9 g/dL (6.4-8.9); eGFR For African Americans 57 (> 60); eGFR For Non-African Americans 47 (> 60)
[2021-01-10 06:53] LABS: Ferritin > 1500 ng/mL (10-120)
[2021-01-10 07:11] LABS: Estimated Average Glucose 183 mg/dl
[2021-01-10] MEDS: Pantoprazole 40 MG VIAL IVP SCH (09:15)
[2021-01-10] MEDS ORDERED: D5% in Water 1,000 ML IVC PRN (09:34)
[2021-01-10] MEDS ORDERED: *HR* Dextrose 50 % in Water (Syg) 50 ML SYRINGE IVP PRN (09:34)
[2021-01-10] MEDS ORDERED: Dextrose Gel 15 GM/37.5 ML TUBE PO PRN ×2 (09:34)
[2021-01-10] MEDS: INSULIN HUMAN REGULAR IVC SCH (09:51)
[2021-01-10] MEDS: D5 IVC SCH (09:51)
[2021-01-10] MEDS: WATER IVC SCH (09:51)
[2021-01-10] MEDS: Loratadine 10 MG TABLET PO SCH (09:52)
[2021-01-10] MEDS: Lactobacillus 1 EACH CAP.SPRINK PO SCH ×2 (09:52→20:25)
[2021-01-10] MEDS: Cholecalciferol (D-3) 1,000 UNIT (25MCG) TABLET PO SCH (09:52)
[2021-01-10] MEDS: Insulin LISPRO 300 UNITS/3 ML VIAL SUBQ SCH ×3 (12:21→20:33)
[2021-01-10] MEDS: D5% in Water 1,000 ML IVC SCH (12:25)
[2021-01-10 15:13] LABS: BUN/Creatinine Ratio 46 (6-26); Blood Urea Nitrogen 48 mg/dL (8-23); Calcium 9.3 mg/dL (8.6-10.3); Carbon Dioxide 22 mEq/L (23-29); Chloride 126 mEq/L (98-107); Glucose 215 mg/dL (70-105); Osmolality,Calculated 341 (280-300); Potassium 4.4 mEq/L (3.5-5.1); Sodium 156 mEq/L (136-145); eGFR For African Americans > 60 (> 60); eGFR For Non-African Americans 53 (> 60)
[2021-01-10 21:13] LABS: BUN/Creatinine Ratio 48 (6-26); Blood Urea Nitrogen 41 mg/dL (8-23); Calcium 8.2 mg/dL (8.6-10.3); Carbon Dioxide 21 mEq/L (23-29); Chloride 128 mEq/L (98-107); Glucose 205 mg/dL (70-105); Osmolality,Calculated 336 (280-300); Potassium 3.9 mEq/L (3.5-5.1); Sodium 155 mEq/L (136-145); eGFR For African Americans > 60 (> 60); eGFR For Non-African Americans > 60 (> 60)
[2021-01-11] MEDS ORDERED: *HR* Labetalol 20 MG/4 ML SYRINGE IVP ONE (04:12)
[2021-01-11] MEDS: Ipratropium 1 PUFF INHALER IH SCH ×4 (04:33→20:23)
[2021-01-11 05:02] LABS: Basophils % 0.1 %; Eosinophils % 0.1 %; Hemoglobin 14.1 g/dL (11.5-15.4); Immature Granulocytes % 1.6 % (0-4)
[2021-01-11 05:04] LABS: Hematocrit 46.9 % (35.3-44.9); Lymphocytes # 1.6 K/mcL (0.6-4.6); Lymphocytes % 4.5 %; Mean Corpuscular HGB Conc 30.1 g/dL (31.6-35.5); Mean Corpuscular Hemoglobin 27.3 pg (28.0-33.3); Mean Corpuscular Volume 90.7 fL (83.0-100.0); Mean Platelet Volume 13.7 fL (9.4-12.4); Monocytes # 2.4 K/mcL (0.0-1.3); Monocytes % 6.7 %; Neutrophils # 31.2 K/mcL (1.6-8.9); Nucleated Red Blood Cells 0.5 /100 WBC (0); Red Blood Count 5.17 M/mcL (3.82-4.97); Red Cell Distribution Width 16.8 % (11.5-14.5)
[2021-01-11] MEDS: *HR* Enoxaparin 40 MG/0.4 ML SYRINGE SQ SCH (05:49)
[2021-01-11 05:50] LABS: Platelet Count 71 K/mcL (140-400)
[2021-01-11 05:51] LABS: White Blood Count 35.9 K/mcL (4.3-11.1)
[2021-01-11 05:55] LABS: Anisocytosis 1+ (Not Present); Polychromasia 1+ (Not Present)
[2021-01-11 05:56] LABS: Platelet Estimate Decreased (Normal)
[2021-01-11 07:03] LABS: Albumin 3.5 g/dL (3.5-5.7); Albumin/Globulin Ratio 1.4 (1.1-2.2); Bilirubin,Total 0.7 mg/dL (0.3-1.0); Calcium 9.1 mg/dL (8.6-10.3); Globulin 2.5 g/dL (2.4-3.5); Potassium 5.6 mEq/L (3.5-5.1)
[2021-01-11] MEDS ORDERED: Midazolam HCl 50 MG/100 ML IV.SOLN IVC SCH (08:00)
[2021-01-11] MEDS: FentaNYL (PF) 1,000 MCG/100 ML IV.SOLN IVC SCH ×2 (08:27→17:32)
[2021-01-11] MEDS: Norepinephrine 4 MG/254 ML IV.SOLN IVC SCH ×2 (08:45→15:55)
[2021-01-11] MEDS: D5% in Water 1,000 ML IVC SCH (08:59)
[2021-01-11] MEDS ORDERED: *HR* Midazolam HCl 5 MG/5 ML VIAL IVP ONE (09:09)
[2021-01-11] MEDS ORDERED: *HR* Etomidate 20 MG/10 ML AMPUL IVP ONE (09:09)
[2021-01-11] MEDS: Cholecalciferol (D-3) 1,000 UNIT (25MCG) TABLET PO SCH (09:51)
[2021-01-11] MEDS: Loratadine 10 MG TABLET PO SCH (09:51)
[2021-01-11] MEDS: Lactobacillus 1 EACH CAP.SPRINK PO SCH ×2 (09:51→20:08)
[2021-01-11] MEDS: Midazolam HCl 50 MG/100 ML IV.SOLN IVC SCH ×3 (10:26→21:12)
[2021-01-11] MEDS: Insulin LISPRO 300 UNITS/3 ML VIAL SUBQ SCH ×4 (10:49→20:36)
[2021-01-11] MEDS: Pantoprazole 40 MG VIAL IVP SCH (10:52)
[2021-01-11] MEDS: Piperacillin/Tazobactam 3.375 GM in D5% in Water (Mini-Bag+) 100 ML IVPB SCH ×3 (10:55→23:47)
[2021-01-11] MEDS ORDERED: Artificial Tears SOLN 15 ML BOTTLE BOTH EYES PRN (11:21)
[2021-01-11] MEDS: Artificial Tears SOLN 15 ML BOTTLE BOTH EYES SCH ×4 (12:12→23:48)
[2021-01-11 18:27] LABS: Bacteria,Urine Few per hpf (None-Few); Bilirubin,Urine Negative (Negative); Blood,Urine Moderate (Negative); Clarity,Urine Turbid (Clear); Color,Urine Yellow (Yellow); Glucose,Urine (UA) 50 mg/dL (Normal); Granular Casts,Urine Moderate per lpf (None Seen); Hyaline Casts,Urine Moderate per lpf (None Seen); Ketones,Urine Negative (Negative); Leukocyte Esterase,Urine Negative (Negative); Mucus,Urine Few per lpf (None-Few); Nitrite,Urine Negative (Negative); PH,Urine 5.5 pH Units (5.0-8.0); Protein,Urine 50 mg/dL (Neg-Trace); RBC,Urine 30-50 per hpf (0-3); Specific Gravity,Urine 1.028 (1.010-1.025); Squamous Epithelial Cell,Urine Few per hpf (None-Few); Urobilinogen,Urine Normal (Normal); WBC,Urine 30-50 per hpf (0-3)
[2021-01-11] MEDS: Chlorhexidine Rinse 15 ML MOUTHWASH MM SCH (20:34)
[2021-01-12] MEDS: Norepinephrine 4 MG/254 ML IV.SOLN IVC SCH ×2 (00:41→11:19)
[2021-01-12 04:11] LABS: BUN/Creatinine Ratio 36 (6-26); Blood Urea Nitrogen 39 mg/dL (8-23); Calcium 8.9 mg/dL (8.6-10.3); Carbon Dioxide 26 mEq/L (23-29); Chloride 121 mEq/L (98-107); Creatine Kinase 303 Units/L (30-223); Glucose 220 mg/dL (70-105); Osmolality,Calculated 332 (280-300); Sodium 153 mEq/L (136-145); eGFR For African Americans > 60 (> 60); eGFR For Non-African Americans 51 (> 60)
[2021-01-12] MEDS: Ipratropium 1 PUFF INHALER IH SCH ×4 (04:11→20:07)
[2021-01-12] MEDS: Artificial Tears SOLN 15 ML BOTTLE BOTH EYES SCH ×5 (04:38→20:23)
[2021-01-12] MEDS: *HR* Enoxaparin 40 MG/0.4 ML SYRINGE SQ SCH (05:45)
[2021-01-12 06:10] LABS: ABG Base Excess -3 mEq/L (-2 to 3); ABG HCO3 27 mEq/L (21-27); ABG Oxygen Saturation 89 % (95-98); ABG PCO2 66 mmHg (35-45); ABG PH 7.21 pH Units (7.32-7.45); ABG PO2 69 mmHg (85-104); ABG TCO2 29 mEq/L (20-26); Blood Gas Modality ASSIST CONTROL; Blood Gas VT 420 cc
[2021-01-12 09:06] LABS: Basophils % 0.1 %; Lymphocytes % 1.9 %; Monocytes % 4.7 %
[2021-01-12] MEDS: Cholecalciferol (D-3) 1,000 UNIT (25MCG) TABLET PO SCH (09:07)
[2021-01-12] MEDS: Pantoprazole 40 MG VIAL IVP SCH (09:07)
[2021-01-12 09:08] LABS: Hematocrit 42.6 % (35.3-44.9); Hemoglobin 12.6 g/dL (11.5-15.4); Immature Granulocytes % 1.2 % (0-4); Immature Platelets 14.9 % (1.1-6.1); Lymphocytes # 0.6 K/mcL (0.6-4.6); Mean Corpuscular HGB Conc 29.6 g/dL (31.6-35.5); Mean Corpuscular Hemoglobin 27.4 pg (28.0-33.3); Mean Corpuscular Volume 92.6 fL (83.0-100.0); Monocytes # 1.4 K/mcL (0.0-1.3); Neutrophils # 27.1 K/mcL (1.6-8.9); Nucleated Red Blood Cells 0.3 /100 WBC (0); Red Cell Distribution Width 16.2 % (11.5-14.5); Segmented Neutrophils % 92.1 %; White Blood Count 29.4 K/mcL (4.3-11.1)
[2021-01-12] MEDS: Insulin LISPRO 300 UNITS/3 ML VIAL SUBQ SCH ×4 (09:08→20:58)
[2021-01-12] MEDS: Loratadine 10 MG TABLET PO SCH (09:09)
[2021-01-12] MEDS: Lactobacillus 1 EACH CAP.SPRINK PO SCH ×2 (09:10→20:23)
[2021-01-12 09:14] LABS: Platelet Count 50 K/mcL (140-400)
[2021-01-12] MEDS: Piperacillin/Tazobactam 3.375 GM in D5% in Water (Mini-Bag+) 100 ML IVPB SCH ×2 (09:26→16:35)
[2021-01-12] MEDS: Chlorhexidine Rinse 15 ML MOUTHWASH MM SCH ×2 (09:57→20:23)
[2021-01-12] MEDS ORDERED: D5% in Water 1,000 ML IVC SCH (12:45)
[2021-01-12] MEDS: FentaNYL (PF) 1,000 MCG/100 ML IV.SOLN IVC SCH (15:08)
[2021-01-12 17:04] LABS: BUN/Creatinine Ratio 40 (6-26); Blood Urea Nitrogen 36 mg/dL (8-23); Calcium 8.3 mg/dL (8.6-10.3); Carbon Dioxide 24 mEq/L (23-29); Chloride 114 mEq/L (98-107); Glucose 412 mg/dL (70-105); Osmolality,Calculated 322 (280-300); Potassium 4.3 mEq/L (3.5-5.1); Sodium 143 mEq/L (136-145); eGFR For African Americans > 60 (> 60); eGFR For Non-African Americans > 60 (> 60)
[2021-01-13] MEDS: Artificial Tears SOLN 15 ML BOTTLE BOTH EYES SCH ×6 (00:43→20:53)
[2021-01-13] MEDS: Piperacillin/Tazobactam 3.375 GM in D5% in Water (Mini-Bag+) 100 ML IVPB SCH ×3 (00:45→16:12)
[2021-01-13] MEDS: Insulin LISPRO 300 UNITS/3 ML VIAL SUBQ SCH ×6 (00:59→20:58)
[2021-01-13] MEDS: Midazolam HCl 50 MG/100 ML IV.SOLN IVC SCH (01:07)
[2021-01-13] MEDS: FentaNYL (PF) 1,000 MCG/100 ML IV.SOLN IVC SCH ×2 (04:18→21:21)
[2021-01-13] MEDS: Ipratropium 1 PUFF INHALER IH SCH ×4 (04:19→21:55)
[2021-01-13] MEDS: *HR* Enoxaparin 40 MG/0.4 ML SYRINGE SQ SCH (05:03)
[2021-01-13 05:39] LABS: ABG Base Excess 2 mEq/L (-2 to 3); ABG HCO3 28 mEq/L (21-27); ABG Oxygen Saturation 87 % (95-98); ABG PCO2 54 mmHg (35-45); ABG PH 7.33 pH Units (7.32-7.45); ABG PO2 57 mmHg (85-104); ABG TCO2 30 mEq/L (20-26); Blood Gas Modality ASSIST CONTROL; Blood Gas VT 420 cc
[2021-01-13 06:26] LABS: BUN/Creatinine Ratio 47 (6-26); Blood Urea Nitrogen 37 mg/dL (8-23); Carbon Dioxide 30 mEq/L (23-29); Chloride 116 mEq/L (98-107); Glucose 173 mg/dL (70-105); Osmolality,Calculated 321 (280-300); Potassium 4.6 mEq/L (3.5-5.1); Sodium 149 mEq/L (136-145); eGFR For African Americans > 60 (> 60); eGFR For Non-African Americans > 60 (> 60)
[2021-01-13 06:30] LABS: Mean Corpuscular Volume 91.3 fL (83.0-100.0); Nucleated Red Blood Cells 0.2 /100 WBC (0)
[2021-01-13 06:32] LABS: Basophils % 0.1 %; Hematocrit 36.6 % (35.3-44.9); Immature Granulocytes % 1.3 % (0-4); Immature Platelets 13.6 % (1.1-6.1); Lymphocytes # 0.4 K/mcL (0.6-4.6); Lymphocytes % 1.6 %; Mean Corpuscular HGB Conc 29.8 g/dL (31.6-35.5); Mean Corpuscular Hemoglobin 27.2 pg (28.0-33.3); Mean Platelet Volume 13.9 fL (9.4-12.4); Monocytes % 4.7 %; Neutrophils # 20.1 K/mcL (1.6-8.9); Red Blood Count 4.01 M/mcL (3.82-4.97); Red Cell Distribution Width 15.9 % (11.5-14.5); Segmented Neutrophils % 92.3 %; White Blood Count 21.8 K/mcL (4.3-11.1)
[2021-01-13 06:45] LABS: Platelet Count 47 K/mcL (140-400)
[2021-01-13 06:46] LABS: Hemoglobin 10.9 g/dL (11.5-15.4)
[2021-01-13] MEDS: Loratadine 10 MG TABLET PO SCH (08:23)
[2021-01-13] MEDS: Lactobacillus 1 EACH CAP.SPRINK PO SCH ×2 (08:23→20:53)
[2021-01-13] MEDS: Chlorhexidine Rinse 15 ML MOUTHWASH MM SCH ×2 (08:23→20:53)
[2021-01-13] MEDS: Cholecalciferol (D-3) 1,000 UNIT (25MCG) TABLET PO SCH (08:23)
[2021-01-13] MEDS: Pantoprazole 40 MG VIAL IVP SCH (08:24)
[2021-01-14] MEDS: Piperacillin/Tazobactam 3.375 GM in D5% in Water (Mini-Bag+) 100 ML IVPB SCH ×3 (03:03→16:21)
[2021-01-14] MEDS: Insulin LISPRO 300 UNITS/3 ML VIAL SUBQ SCH ×5 (03:05→21:05)
[2021-01-14] MEDS: Artificial Tears SOLN 15 ML BOTTLE BOTH EYES SCH ×6 (03:11→21:05)
[2021-01-14] MEDS: Ipratropium 1 PUFF INHALER IH SCH ×4 (04:11→20:52)
[2021-01-14 05:14] LABS: ABG Base Excess 1 mEq/L (-2 to 3); ABG HCO3 28 mEq/L (21-27); ABG Oxygen Saturation 95 % (95-98); ABG PCO2 51 mmHg (35-45); ABG PH 7.34 pH Units (7.32-7.45); ABG PO2 81 mmHg (85-104); ABG TCO2 29 mEq/L (20-26); Blood Gas VT 400 cc
[2021-01-14] MEDS: *HR* Enoxaparin 40 MG/0.4 ML SYRINGE SQ SCH (05:23)
[2021-01-14 06:06] LABS: Hemoglobin 9.4 g/dL (11.5-15.4)
[2021-01-14 06:08] LABS: Hematocrit 32.3 % (35.3-44.9); Immature Platelets 10.1 % (1.1-6.1); Mean Corpuscular HGB Conc 29.1 g/dL (31.6-35.5); Mean Corpuscular Hemoglobin 27.3 pg (28.0-33.3); Mean Corpuscular Volume 93.9 fL (83.0-100.0); Mean Platelet Volume 12.4 fL (9.4-12.4); Red Blood Count 3.44 M/mcL (3.82-4.97); Red Cell Distribution Width 16.5 % (11.5-14.5); White Blood Count 17.8 K/mcL (4.3-11.1)
[2021-01-14 06:35] LABS: Alanine Aminotransferase 120 Units/L (7-52); Albumin 2.7 g/dL (3.5-5.7); Albumin/Globulin Ratio 1.2 (1.1-2.2); Alkaline Phosphatase 81 Units/L (34-104); Aspartate Amino Transferase 56 Units/L (13-39); BUN/Creatinine Ratio 58 (6-26); Bilirubin,Total 0.6 mg/dL (0.3-1.0); Blood Urea Nitrogen 38 mg/dL (8-23); Calcium 8.1 mg/dL (8.6-10.3); Carbon Dioxide 27 mEq/L (23-29); Chloride 105 mEq/L (98-107); Globulin 2.2 g/dL (2.4-3.5); Glucose 559 mg/dL (70-105); Osmolality,Calculated 325 (280-300); Potassium 4.3 mEq/L (3.5-5.1); Sodium 140 mEq/L (136-145); Total Protein 4.9 g/dL (6.4-8.9); eGFR For African Americans > 60 (> 60); eGFR For Non-African Americans > 60 (> 60)
[2021-01-14] MEDS: Chlorhexidine Rinse 15 ML MOUTHWASH MM SCH ×2 (07:29→21:05)
[2021-01-14] MEDS: Lactobacillus 1 EACH CAP.SPRINK PO SCH ×2 (07:31→21:05)
[2021-01-14] MEDS: Pantoprazole 40 MG VIAL IVP SCH (07:31)
[2021-01-14] MEDS: FentaNYL (PF) 1,000 MCG/100 ML IV.SOLN IVC SCH ×2 (07:31→15:53)
[2021-01-14] MEDS: Cholecalciferol (D-3) 1,000 UNIT (25MCG) TABLET PO SCH (07:31)
[2021-01-14] MEDS: Loratadine 10 MG TABLET PO SCH (07:31)
[2021-01-14] MEDS: Norepinephrine 4 MG/254 ML IV.SOLN IVC SCH ×6 (08:00→19:46)
[2021-01-14] MEDS: Midazolam HCl 50 MG/100 ML IV.SOLN IVC SCH ×2 (10:04→22:32)
[2021-01-14] MEDS: Cisatracurium 200 MG in 0.9 % Sodium Chloride 180 ML IVC SCH (15:17)
[2021-01-14] MEDS: FentaNYL (PF) 2,500 MCG/50 ML IV.SOLN IVC SCH (20:21)
[2021-01-15] MEDS: Piperacillin/Tazobactam 3.375 GM in D5% in Water (Mini-Bag+) 100 ML IVPB SCH ×3 (00:54→16:31)
[2021-01-15] MEDS: Artificial Tears SOLN 15 ML BOTTLE BOTH EYES SCH ×6 (00:56→20:07)
[2021-01-15] MEDS: Insulin LISPRO 300 UNITS/3 ML VIAL SUBQ SCH ×7 (00:56→20:07)
[2021-01-15] MEDS: Norepinephrine 4 MG/254 ML IV.SOLN IVC SCH ×3 (01:15→19:38)
[2021-01-15] MEDS: Cisatracurium 200 MG in 0.9 % Sodium Chloride 180 ML IVC SCH ×2 (02:13→15:11)
[2021-01-15] MEDS: Ipratropium 1 PUFF INHALER IH SCH ×4 (03:29→20:14)
[2021-01-15 03:40] LABS: ABG Base Excess 2 mEq/L (-2 to 3); ABG HCO3 30 mEq/L (21-27); ABG Oxygen Saturation 84 % (95-98); ABG PCO2 62 mmHg (35-45); ABG PO2 55 mmHg (85-104); ABG TCO2 32 mEq/L (20-26)
[2021-01-15] MEDS: FentaNYL (PF) 2,500 MCG/50 ML IV.SOLN IVC SCH ×2 (04:35→15:13)
[2021-01-15 04:58] LABS: VBG Ionized Calcium 1.38 mmol/L (1.15-1.35)
[2021-01-15 05:00] LABS: Basophils % 0.1 %; Hemoglobin 10.1 g/dL (11.5-15.4); Nucleated Red Blood Cells 0.2 /100 WBC (0)
[2021-01-15 05:02] LABS: Eosinophils % 0.1 %; Hematocrit 34.5 % (35.3-44.9); Immature Granulocytes % 1.2 % (0-4); Immature Platelets 11.3 % (1.1-6.1); Lymphocytes # 0.2 K/mcL (0.6-4.6); Lymphocytes % 1.3 %; Mean Corpuscular HGB Conc 29.3 g/dL (31.6-35.5); Mean Corpuscular Hemoglobin 27.4 pg (28.0-33.3); Mean Corpuscular Volume 93.5 fL (83.0-100.0); Monocytes # 1.1 K/mcL (0.0-1.3); Monocytes % 6.6 %; Neutrophils # 15.5 K/mcL (1.6-8.9); Red Blood Count 3.69 M/mcL (3.82-4.97); Red Cell Distribution Width 16.6 % (11.5-14.5); Segmented Neutrophils % 90.7 %; White Blood Count 17.1 K/mcL (4.3-11.1)
[2021-01-15 05:10] LABS: Platelet Count 57 K/mcL (140-400)
[2021-01-15] MEDS: *HR* Enoxaparin 40 MG/0.4 ML SYRINGE SQ SCH (05:35)
[2021-01-15 06:08] LABS: BUN/Creatinine Ratio 69 (6-26); Blood Urea Nitrogen 45 mg/dL (8-23); Calcium 9.2 mg/dL (8.6-10.3); Carbon Dioxide 31 mEq/L (23-29); Chloride 112 mEq/L (98-107); Glucose 227 mg/dL (70-105); Magnesium 2.6 mg/dL (1.6-2.6); Osmolality,Calculated 321 (280-300); Phosphorous 2.7 mg/dL (2.7-4.5); Potassium 5.2 mEq/L (3.5-5.1); Sodium 146 mEq/L (136-145); eGFR For African Americans > 60 (> 60); eGFR For Non-African Americans > 60 (> 60)
[2021-01-15] MEDS: D5% in Water 1,000 ML IVC SCH (07:23)
[2021-01-15] MEDS: Pantoprazole 40 MG VIAL IVP SCH (07:40)
[2021-01-15] MEDS: Cholecalciferol (D-3) 1,000 UNIT (25MCG) TABLET PO SCH (07:40)
[2021-01-15] MEDS: Chlorhexidine Rinse 15 ML MOUTHWASH MM SCH ×2 (07:40→20:07)
[2021-01-15] MEDS: Loratadine 10 MG TABLET PO SCH (07:40)
[2021-01-15] MEDS: Lactobacillus 1 EACH CAP.SPRINK PO SCH ×2 (07:40→20:07)
[2021-01-15] MEDS: Midazolam HCl 50 MG/100 ML IV.SOLN IVC SCH ×2 (10:31→23:27)
[2021-01-15 12:43] LABS: BUN/Creatinine Ratio 76 (6-26); Blood Urea Nitrogen 41 mg/dL (8-23); Calcium 8.5 mg/dL (8.6-10.3); Carbon Dioxide 28 mEq/L (23-29); Chloride 110 mEq/L (98-107); Glucose 424 mg/dL (70-105); Osmolality,Calculated 318 (280-300); Sodium 140 mEq/L (136-145); eGFR For African Americans > 60 (> 60); eGFR For Non-African Americans > 60 (> 60)
[2021-01-15 17:11] LABS: ABG Base Excess 1 mEq/L (-2 to 3); ABG HCO3 31 mEq/L (21-27); ABG Oxygen Saturation 74 % (95-98); ABG PCO2 71 mmHg (35-45); ABG PH 7.24 pH Units (7.32-7.45); ABG PO2 47 mmHg (85-104); ABG TCO2 33 mEq/L (20-26); Blood Gas VT 400 cc
[2021-01-16] MEDS: Piperacillin/Tazobactam 3.375 GM in D5% in Water (Mini-Bag+) 100 ML IVPB SCH ×3 (01:00→16:50)
[2021-01-16] MEDS: Artificial Tears SOLN 15 ML BOTTLE BOTH EYES SCH ×6 (01:48→20:22)
[2021-01-16] MEDS: Insulin LISPRO 300 UNITS/3 ML VIAL SUBQ SCH ×6 (01:48→20:27)
[2021-01-16] MEDS: FentaNYL (PF) 2,500 MCG/50 ML IV.SOLN IVC SCH ×2 (03:46→16:02)
[2021-01-16] MEDS: Cisatracurium 200 MG in 0.9 % Sodium Chloride 180 ML IVC SCH ×2 (04:10→16:51)
[2021-01-16] MEDS: *HR* Enoxaparin 40 MG/0.4 ML SYRINGE SQ SCH (04:40)
[2021-01-16] MEDS: Norepinephrine 4 MG/254 ML IV.SOLN IVC SCH ×3 (04:41→20:22)
[2021-01-16] MEDS: Ipratropium 1 PUFF INHALER IH SCH ×4 (04:49→19:49)
[2021-01-16 05:00] LABS: ABG Base Excess 5 mEq/L (-2 to 3); ABG HCO3 34 mEq/L (21-27); ABG Oxygen Saturation 87 % (95-98); ABG PCO2 72 mmHg (35-45); ABG PH 7.28 pH Units (7.32-7.45); ABG PO2 62 mmHg (85-104); ABG TCO2 36 mEq/L (20-26); Blood Gas VT 380 cc
[2021-01-16 05:02] LABS: Basophils % 0.2 %
[2021-01-16 05:04] LABS: Hematocrit 34.5 % (35.3-44.9); Immature Granulocytes % 2.3 % (0-4); Immature Platelets 11.9 % (1.1-6.1); Lymphocytes # 0.2 K/mcL (0.6-4.6); Lymphocytes % 1.4 %; Mean Corpuscular Hemoglobin 27.5 pg (28.0-33.3); Mean Platelet Volume 12.1 fL (9.4-12.4); Monocytes # 1.1 K/mcL (0.0-1.3); Monocytes % 7.1 %; Neutrophils # 13.5 K/mcL (1.6-8.9); Nucleated Red Blood Cells 0.9 /100 WBC (0); Platelet Count 65 K/mcL (140-400); Red Blood Count 3.63 M/mcL (3.82-4.97); Red Cell Distribution Width 16.8 % (11.5-14.5); White Blood Count 15.2 K/mcL (4.3-11.1)
[2021-01-16 05:06] LABS: VBG Ionized Calcium 1.41 mmol/L (1.15-1.35)
[2021-01-16 05:22] LABS: BUN/Creatinine Ratio 84 (6-26); Blood Urea Nitrogen 41 mg/dL (8-23); Calcium 9.3 mg/dL (8.6-10.3); Carbon Dioxide 32 mEq/L (23-29); Chloride 111 mEq/L (98-107); Glucose 247 mg/dL (70-105); Magnesium 2.4 mg/dL (1.6-2.6); Osmolality,Calculated 318 (280-300); Sodium 145 mEq/L (136-145); eGFR For African Americans > 60 (> 60); eGFR For Non-African Americans > 60 (> 60)
[2021-01-16] MEDS ORDERED: Dexamethasone 10 MG/ML MDV IVP SCH (09:00)
[2021-01-16] MEDS: Pantoprazole 40 MG VIAL IVP SCH (09:26)
[2021-01-16] MEDS: Lactobacillus 1 EACH CAP.SPRINK PO SCH ×2 (09:27→20:24)
[2021-01-16] MEDS: Cholecalciferol (D-3) 1,000 UNIT (25MCG) TABLET PO SCH (09:27)
[2021-01-16] MEDS: Chlorhexidine Rinse 15 ML MOUTHWASH MM SCH ×2 (09:27→20:24)
[2021-01-16] MEDS: Dexamethasone Sodium Phos/PF 10 MG/ML VIAL IVP SCH (12:02)
[2021-01-16] MEDS: Midazolam HCl 50 MG/100 ML IV.SOLN IVC SCH (12:34)
[2021-01-16 14:59] LABS: BUN/Creatinine Ratio 92 (6-26); Blood Urea Nitrogen 44 mg/dL (8-23); Calcium 8.9 mg/dL (8.6-10.3); Carbon Dioxide 32 mEq/L (23-29); Chloride 112 mEq/L (98-107); Glucose 295 mg/dL (70-105); Osmolality,Calculated 324 (280-300); Potassium 5.1 mEq/L (3.5-5.1); Sodium 146 mEq/L (136-145); eGFR For African Americans > 60 (> 60); eGFR For Non-African Americans > 60 (> 60)
[2021-01-17] MEDS: Artificial Tears SOLN 15 ML BOTTLE BOTH EYES SCH ×7 (01:23→23:52)
[2021-01-17] MEDS: Insulin LISPRO 300 UNITS/3 ML VIAL SUBQ SCH ×7 (01:24→23:54)
[2021-01-17] MEDS: Piperacillin/Tazobactam 3.375 GM in D5% in Water (Mini-Bag+) 100 ML IVPB SCH ×2 (01:28→08:15)
[2021-01-17] MEDS: Midazolam HCl 50 MG/100 ML IV.SOLN IVC SCH ×2 (03:18→16:09)
[2021-01-17] MEDS: Ipratropium 1 PUFF INHALER IH SCH ×4 (03:29→22:29)
[2021-01-17] MEDS: FentaNYL (PF) 2,500 MCG/50 ML IV.SOLN IVC SCH ×2 (04:28→15:39)
[2021-01-17 04:55] LABS: ABG Base Excess 7 mEq/L (-2 to 3); ABG HCO3 34 mEq/L (21-27); ABG Oxygen Saturation 90 % (95-98); ABG PCO2 63 mmHg (35-45); ABG PH 7.34 pH Units (7.32-7.45); ABG PO2 64 mmHg (85-104); ABG TCO2 36 mEq/L (20-26); Blood Gas VT 380 cc
[2021-01-17 04:57] LABS: Basophils % 0.2 %; Hemoglobin 9.2 g/dL (11.5-15.4)
[2021-01-17 04:59] LABS: Hematocrit 31.5 % (35.3-44.9); Immature Platelets 10.6 % (1.1-6.1); Lymphocytes # 0.2 K/mcL (0.6-4.6); Lymphocytes % 1.6 %; Mean Corpuscular HGB Conc 29.2 g/dL (31.6-35.5); Mean Corpuscular Hemoglobin 27.8 pg (28.0-33.3); Mean Corpuscular Volume 95.2 fL (83.0-100.0); Mean Platelet Volume 12.6 fL (9.4-12.4); Monocytes # 0.8 K/mcL (0.0-1.3); Monocytes % 5.9 %; Neutrophils # 11.5 K/mcL (1.6-8.9); Nucleated Red Blood Cells 0.8 /100 WBC (0); Platelet Count 71 K/mcL (140-400); Red Blood Count 3.31 M/mcL (3.82-4.97); Red Cell Distribution Width 17.2 % (11.5-14.5); Segmented Neutrophils % 89.3 %; White Blood Count 12.9 K/mcL (4.3-11.1)
[2021-01-17 05:26] LABS: BUN/Creatinine Ratio 93 (6-26); Blood Urea Nitrogen 37 mg/dL (8-23); Calcium 8.7 mg/dL (8.6-10.3); Carbon Dioxide 32 mEq/L (23-29); Chloride 108 mEq/L (98-107); Glucose 280 mg/dL (70-105); Magnesium 2.1 mg/dL (1.6-2.6); Osmolality,Calculated 319 (280-300); Potassium 4.9 mEq/L (3.5-5.1); Sodium 145 mEq/L (136-145); eGFR For African Americans > 60 (> 60); eGFR For Non-African Americans > 60 (> 60)
[2021-01-17 05:35] LABS: Anisocytosis 1+ (Not Present); Platelet Estimate Normal (Normal)
[2021-01-17] MEDS: *HR* Enoxaparin 40 MG/0.4 ML SYRINGE SQ SCH (06:00)
[2021-01-17] MEDS: Cisatracurium 200 MG in 0.9 % Sodium Chloride 180 ML IVC SCH ×2 (06:00→19:01)
[2021-01-17] MEDS ORDERED: Perflutren Lipid Microsphere 1.3 ML in 0.9 % Sodium Chloride 8.7 ML IVP PRN (08:07)
[2021-01-17] MEDS: Chlorhexidine Rinse 15 ML MOUTHWASH MM SCH ×2 (08:13→20:06)
[2021-01-17] MEDS: Dexamethasone Sodium Phos/PF 10 MG/ML VIAL IVP SCH (08:13)
[2021-01-17] MEDS: Cholecalciferol (D-3) 1,000 UNIT (25MCG) TABLET PO SCH (08:13)
[2021-01-17] MEDS: Lactobacillus 1 EACH CAP.SPRINK PO SCH ×2 (08:13→20:06)
[2021-01-17] MEDS: Pantoprazole 40 MG VIAL IVP SCH (08:14)
[2021-01-17] MEDS: Norepinephrine 4 MG/254 ML IV.SOLN IVC SCH ×2 (14:48→20:42)
[2021-01-17] MEDS: Piperacillin/Tazobactam 3.375 GM in 0.9 % Sodium Chloride Mini Bag 100 ML IVPB SCH ×2 (16:11→23:56)
[2021-01-18] MEDS: Ipratropium 1 PUFF INHALER IH SCH ×4 (03:39→21:53)
[2021-01-18] MEDS: Artificial Tears SOLN 15 ML BOTTLE BOTH EYES SCH ×6 (04:14→23:52)
[2021-01-18] MEDS: Norepinephrine 4 MG/254 ML IV.SOLN IVC SCH ×3 (04:14→23:52)
[2021-01-18] MEDS: Insulin LISPRO 300 UNITS/3 ML VIAL SUBQ SCH ×6 (04:17→23:52)
[2021-01-18] MEDS: FentaNYL (PF) 2,500 MCG/50 ML IV.SOLN IVC SCH ×2 (04:22→17:05)
[2021-01-18 04:39] LABS: VBG Ionized Calcium 1.19 mmol/L (1.15-1.35)
[2021-01-18 04:41] LABS: ABG Base Excess 7 mEq/L (-2 to 3); ABG HCO3 33 mEq/L (21-27); ABG Oxygen Saturation 92 % (95-98); ABG PCO2 54 mmHg (35-45); ABG PH 7.39 pH Units (7.32-7.45); ABG PO2 65 mmHg (85-104); ABG TCO2 35 mEq/L (20-26); Blood Gas VT 380 cc
[2021-01-18 04:50] LABS: Basophils % 0.2 %; Eosinophils % 0.1 %; Lymphocytes % 2.5 %; Red Cell Distribution Width 17.8 % (11.5-14.5)
[2021-01-18 04:52] LABS: Hematocrit 31.3 % (35.3-44.9); Hemoglobin 9.4 g/dL (11.5-15.4); Immature Granulocytes % 2.8 % (0-4); Immature Platelets 16.9 % (1.1-6.1); Lymphocytes # 0.3 K/mcL (0.6-4.6); Mean Corpuscular Hemoglobin 28.1 pg (28.0-33.3); Mean Corpuscular Volume 93.4 fL (83.0-100.0); Mean Platelet Volume 12.9 fL (9.4-12.4); Monocytes # 1.1 K/mcL (0.0-1.3); Monocytes % 8.1 %; Neutrophils # 11.3 K/mcL (1.6-8.9); Nucleated Red Blood Cells 0.5 /100 WBC (0); Red Blood Count 3.35 M/mcL (3.82-4.97); Segmented Neutrophils % 86.3 %; White Blood Count 13.1 K/mcL (4.3-11.1)
[2021-01-18 05:05] LABS: Alanine Aminotransferase 116 Units/L (7-52); Albumin 2.6 g/dL (3.5-5.7); Albumin/Globulin Ratio 1.2 (1.1-2.2); Alkaline Phosphatase 100 Units/L (34-104); Aspartate Amino Transferase 38 Units/L (13-39); BUN/Creatinine Ratio 98 (6-26); Bilirubin,Total 0.4 mg/dL (0.3-1.0); Blood Urea Nitrogen 43 mg/dL (8-23); Calcium 8.9 mg/dL (8.6-10.3); Carbon Dioxide 34 mEq/L (23-29); Chloride 109 mEq/L (98-107); Globulin 2.2 g/dL (2.4-3.5); Glucose 212 mg/dL (70-105); Magnesium 2.2 mg/dL (1.6-2.6); Osmolality,Calculated 319 (280-300); Phosphorous 2.6 mg/dL (2.7-4.5); Potassium 5.5 mEq/L (3.5-5.1); Sodium 146 mEq/L (136-145); Total Protein 4.8 g/dL (6.4-8.9); eGFR For African Americans > 60 (> 60); eGFR For Non-African Americans > 60 (> 60)
[2021-01-18] MEDS: Midazolam HCl 50 MG/100 ML IV.SOLN IVC SCH ×2 (05:15→19:20)
[2021-01-18] MEDS: *HR* Enoxaparin 40 MG/0.4 ML SYRINGE SQ SCH (05:16)
[2021-01-18 05:28] LABS: Platelet Count 62 K/mcL (140-400)
[2021-01-18] MEDS: Cisatracurium 200 MG in 0.9 % Sodium Chloride 180 ML IVC SCH ×2 (06:37→19:20)
[2021-01-18] MEDS: Chlorhexidine Rinse 15 ML MOUTHWASH MM SCH ×2 (07:55→19:56)
[2021-01-18] MEDS: Cholecalciferol (D-3) 1,000 UNIT (25MCG) TABLET PO SCH (07:55)
[2021-01-18] MEDS: Pantoprazole 40 MG VIAL IVP SCH (07:56)
[2021-01-18] MEDS: Lactobacillus 1 EACH CAP.SPRINK PO SCH ×2 (07:56→19:56)
[2021-01-18] MEDS: Dexamethasone Sodium Phos/PF 10 MG/ML VIAL IVP SCH (07:56)
[2021-01-18] MEDS: Piperacillin/Tazobactam 3.375 GM in 0.9 % Sodium Chloride Mini Bag 100 ML IVPB SCH ×3 (07:59→23:53)
[2021-01-18 15:49] LABS: BUN/Creatinine Ratio 100 (6-26); Blood Urea Nitrogen 44 mg/dL (8-23); Calcium 9.1 mg/dL (8.6-10.3); Carbon Dioxide 32 mEq/L (23-29); Chloride 107 mEq/L (98-107); Glucose 289 mg/dL (70-105); Osmolality,Calculated 322 (280-300); Potassium 5.9 mEq/L (3.5-5.1); Sodium 145 mEq/L (136-145); eGFR For African Americans > 60 (> 60); eGFR For Non-African Americans > 60 (> 60)
[2021-01-18] MEDS: SODIUM ZIRCONIUM CYCLOSILICATE 5 GM POWD.PACK PO SCH (16:34)
[2021-01-18 22:16] LABS: BUN/Creatinine Ratio 113 (6-26); Blood Urea Nitrogen 44 mg/dL (8-23); Calcium 9.2 mg/dL (8.6-10.3); Carbon Dioxide 33 mEq/L (23-29); Chloride 108 mEq/L (98-107); Glucose 230 mg/dL (70-105); Osmolality,Calculated 318 (280-300); Potassium 5.6 mEq/L (3.5-5.1); Sodium 145 mEq/L (136-145); eGFR For African Americans > 60 (> 60); eGFR For Non-African Americans > 60 (> 60)
[2021-01-19] MEDS: Ipratropium 1 PUFF INHALER IH SCH ×4 (03:19→22:54)
[2021-01-19] MEDS: Insulin LISPRO 300 UNITS/3 ML VIAL SUBQ SCH ×5 (04:01→20:20)
[2021-01-19] MEDS: Artificial Tears SOLN 15 ML BOTTLE BOTH EYES SCH ×5 (04:01→20:21)
[2021-01-19 04:14] LABS: Alanine Aminotransferase 97 Units/L (7-52); Albumin 2.6 g/dL (3.5-5.7); Albumin/Globulin Ratio 1.1 (1.1-2.2); Alkaline Phosphatase 102 Units/L (34-104); Aspartate Amino Transferase 27 Units/L (13-39); BUN/Creatinine Ratio 108 (6-26); Bilirubin,Total 0.4 mg/dL (0.3-1.0); Blood Urea Nitrogen 42 mg/dL (8-23); Calcium 9.2 mg/dL (8.6-10.3); Carbon Dioxide 34 mEq/L (23-29); Chloride 109 mEq/L (98-107); Globulin 2.3 g/dL (2.4-3.5); Glucose 224 mg/dL (70-105); Magnesium 2.1 mg/dL (1.6-2.6); Osmolality,Calculated 323 (280-300); Potassium 5.3 mEq/L (3.5-5.1); Sodium 148 mEq/L (136-145); Total Protein 4.9 g/dL (6.4-8.9); eGFR For African Americans > 60 (> 60); eGFR For Non-African Americans > 60 (> 60)
[2021-01-19 04:29] LABS: ABG Base Excess 6 mEq/L (-2 to 3); ABG HCO3 34 mEq/L (21-27); ABG Oxygen Saturation 89 % (95-98); ABG PCO2 69 mmHg (35-45); ABG PO2 66 mmHg (85-104); ABG TCO2 36 mEq/L (20-26); Blood Gas VT 380 cc
[2021-01-19 05:10] LABS: Eosinophils % 0.1 %; Red Blood Count 3.22 M/mcL (3.82-4.97)
[2021-01-19 05:11] LABS: Basophils % 0.2 %; Hematocrit 30.5 % (35.3-44.9); Hemoglobin 9.2 g/dL (11.5-15.4); Immature Granulocytes % 5.3 % (0-4); Immature Platelets 11.2 % (1.1-6.1); Lymphocytes # 0.4 K/mcL (0.6-4.6); Lymphocytes % 2.7 %; Mean Corpuscular HGB Conc 30.2 g/dL (31.6-35.5); Mean Corpuscular Hemoglobin 28.6 pg (28.0-33.3); Mean Corpuscular Volume 94.7 fL (83.0-100.0); Mean Platelet Volume 12.1 fL (9.4-12.4); Monocytes # 1.2 K/mcL (0.0-1.3); Monocytes % 8.8 %; Neutrophils # 11.2 K/mcL (1.6-8.9); Nucleated Red Blood Cells 0.4 /100 WBC (0); Red Cell Distribution Width 18.4 % (11.5-14.5); Segmented Neutrophils % 82.9 %; White Blood Count 13.5 K/mcL (4.3-11.1)
[2021-01-19 05:14] LABS: Platelet Count 97 K/mcL (140-400)
[2021-01-19] MEDS: FentaNYL (PF) 2,500 MCG/50 ML IV.SOLN IVC SCH ×2 (06:10→18:34)
[2021-01-19] MEDS: *HR* Enoxaparin 40 MG/0.4 ML SYRINGE SQ SCH (06:22)
[2021-01-19] MEDS: Norepinephrine 4 MG/254 ML IV.SOLN IVC SCH ×2 (07:37→15:49)
[2021-01-19] MEDS: Piperacillin/Tazobactam 3.375 GM in 0.9 % Sodium Chloride Mini Bag 100 ML IVPB SCH ×2 (07:45→15:52)
[2021-01-19] MEDS: Chlorhexidine Rinse 15 ML MOUTHWASH MM SCH ×2 (07:46→20:20)
[2021-01-19] MEDS: Cholecalciferol (D-3) 1,000 UNIT (25MCG) TABLET PO SCH (07:46)
[2021-01-19] MEDS: Lactobacillus 1 EACH CAP.SPRINK PO SCH ×2 (07:46→20:21)
[2021-01-19] MEDS: SODIUM ZIRCONIUM CYCLOSILICATE 5 GM POWD.PACK PO SCH (07:46)
[2021-01-19] MEDS: Dexamethasone Sodium Phos/PF 10 MG/ML VIAL IVP SCH (07:46)
[2021-01-19] MEDS: Pantoprazole 40 MG VIAL IVP SCH (07:46)
[2021-01-19] MEDS: Cisatracurium 200 MG in 0.9 % Sodium Chloride 180 ML IVC SCH (07:55)
[2021-01-19] MEDS: Midazolam HCl 50 MG/100 ML IV.SOLN IVC SCH (09:07)
[2021-01-20] MEDS: Piperacillin/Tazobactam 3.375 GM in 0.9 % Sodium Chloride Mini Bag 100 ML IVPB SCH ×2 (00:31→07:26)
[2021-01-20] MEDS: Insulin LISPRO 300 UNITS/3 ML VIAL SUBQ SCH ×4 (00:31→12:35)
[2021-01-20] MEDS: Artificial Tears SOLN 15 ML BOTTLE BOTH EYES SCH ×4 (00:31→12:44)
[2021-01-20] MEDS: Norepinephrine 4 MG/254 ML IV.SOLN IVC SCH ×2 (01:46→07:28)
[2021-01-20] MEDS: Ipratropium 1 PUFF INHALER IH SCH ×2 (03:21→10:14)
[2021-01-20 04:43] LABS: ABG Base Excess 8 mEq/L (-2 to 3); ABG HCO3 35 mEq/L (21-27); ABG Oxygen Saturation 92 % (95-98); ABG PCO2 62 mmHg (35-45); ABG PH 7.36 pH Units (7.32-7.45); ABG PO2 69 mmHg (85-104); ABG TCO2 37 mEq/L (20-26); Blood Gas VT 380 cc
[2021-01-20 05:06] LABS: Hematocrit 31.6 % (35.3-44.9); Hemoglobin 9.4 g/dL (11.5-15.4); Mean Corpuscular HGB Conc 29.7 g/dL (31.6-35.5); Mean Corpuscular Hemoglobin 27.7 pg (28.0-33.3); Mean Corpuscular Volume 93.2 fL (83.0-100.0); Mean Platelet Volume 11.4 fL (9.4-12.4); Platelet Count 116 K/mcL (140-400); Red Blood Count 3.39 M/mcL (3.82-4.97); Red Cell Distribution Width 18.7 % (11.5-14.5)
[2021-01-20 05:07] LABS: VBG Ionized Calcium 1.32 mmol/L (1.15-1.35)
[2021-01-20 05:17] LABS: Alanine Aminotransferase 78 Units/L (7-52); Albumin 2.5 g/dL (3.5-5.7); Alkaline Phosphatase 95 Units/L (34-104); Aspartate Amino Transferase 22 Units/L (13-39); BUN/Creatinine Ratio 120 (6-26); Bilirubin,Total 0.4 mg/dL (0.3-1.0); Blood Urea Nitrogen 36 mg/dL (8-23); Calcium 8.8 mg/dL (8.6-10.3); Carbon Dioxide 33 mEq/L (23-29); Chloride 106 mEq/L (98-107); Globulin 2.4 g/dL (2.4-3.5); Glucose 176 mg/dL (70-105); Osmolality,Calculated 311 (280-300); Phosphorous 2.2 mg/dL (2.7-4.5); Potassium 4.5 mEq/L (3.5-5.1); Sodium 144 mEq/L (136-145); Total Protein 4.9 g/dL (6.4-8.9); eGFR For African Americans > 60 (> 60); eGFR For Non-African Americans > 60 (> 60)
[2021-01-20] MEDS: *HR* Enoxaparin 40 MG/0.4 ML SYRINGE SQ SCH (05:20)
[2021-01-20] MEDS: Cholecalciferol (D-3) 1,000 UNIT (25MCG) TABLET PO SCH (07:26)
[2021-01-20] MEDS: SODIUM ZIRCONIUM CYCLOSILICATE 5 GM POWD.PACK PO SCH (07:26)
[2021-01-20] MEDS: Chlorhexidine Rinse 15 ML MOUTHWASH MM SCH (07:26)
[2021-01-20] MEDS: Lactobacillus 1 EACH CAP.SPRINK PO SCH (07:26)
[2021-01-20] MEDS: Pantoprazole 40 MG VIAL IVP SCH (07:27)
[2021-01-20] MEDS: Dexamethasone Sodium Phos/PF 10 MG/ML VIAL IVP SCH (07:28)
[2021-01-20] MEDS: FentaNYL (PF) 2,500 MCG/50 ML IV.SOLN IVC SCH (08:20)
[2021-01-20] MEDS: Cisatracurium 200 MG in 0.9 % Sodium Chloride 180 ML IVC SCH (09:56)
[2021-01-20] MEDS: Midazolam HCl 50 MG/100 ML IV.SOLN IVC SCH (09:59)
[2021-01-20] MEDS ORDERED: *HR* FentaNYL (PF) 100 MCG/2 ML VIAL IVP PRN (13:56)
[2021-01-20] MEDS ORDERED: *HR* LORazepam 2 MG/ML VIAL IVP PRN (13:57)
[2021-01-20] MEDS ORDERED: Atropine 1% Opth Drops 100 DROP/5 ML BOTTLE SL PRN (13:57)
[2021-01-20] MEDS ORDERED: Haloperidol Lactate 5 MG/ML VIAL IVP PRN (13:59)
[2021-01-20 14:30] VITALS: TEMP 99
[2021-01-20 18:40] VITALS: BP 109/71; PULSE 120; O2SAT 71
== END 2021-01-20 18:43 | disposition expired | DRG 207 ==
LOC: CDU → SUATTDRO 13:02 → ICNU 12-26 11:19 → 2NENU 12-28 13:25 → 2NNU 01-11 13:57 → ICNU 01-15 06:52
PROVIDERS: ADMIT Internal Medicine; ATTEND Family Medicine